=== PATIENT | male | born 1930 | race Caucasian/White ===

== ENCOUNTER 2016-08-27 10:00 | Inpatient (IN) | payer OTHER ==
--- NOTE | 2016-08-27 11:33 | EDPHY ---
H & P Stated Complaint: hx parkinsons/fell last night/inj r hip andr 4th digit Time Seen by Provider: 08/27/16 11:06 HPI/ROS: CHIEF COMPLAINT: fall, right hip pain, right wrist, right ring finger pain HISTORY OF PRESENT ILLNESS: 86-year-old male presents emergency department complaining of right hip pain, right wrist pain and right ring finger pain after he tripped and fell last night in the garage. Patient states his pinky finger was dislocated, he pulled on it and it went back into place, he was unable to reduce his ring finger that continues dislocated. Patient is right- hand-dominant. He denies head strike, no neck pain. Patient reports he has been able to limp around the house though has significant right hip pain with ambulation. No numbness or tingling to his hand, no numbness or tingling to his leg. Patient denies chest pain or shortness of breath. Patient with history of Parkinson disease. He has aortic stenosis and had a minimally invasive aortic valve replacement last year. He has a pacemaker. REVIEW OF SYSTEMS: A comprehensive 10 point review of systems is otherwise negative aside from elements mentioned in the history of present illness. Source: Patient, Family Exam Limitations: No limitations - Personal History Current Tetanus/Diphtheria Vaccine: Yes - Medical/Surgical History Hx Asthma: No Hx Chronic Respiratory Disease: No Hx Diabetes: No Hx Cardiac Disease: Yes Hx Renal Disease: No Hx Cirrhosis: No Hx Alcoholism: No Hx HIV/AIDS: No Hx Splenectomy or Spleen Trauma: No Other PMH: aortic stenosis, hypertension, pacemaker parkinsons - Social History Smoking Status: Former smoker - Physical Exam Exam: Physical Exam Gen: Alert and Oriented, NAD HEENT: PERRL, moist mucous membranes NECK: No C-spine tenderness to palpation CV: regular rate and systolic murmur PULM: CTAB, no wheezes ABDOMEN: soft, non tender to palpation, BS present BACK: No CVA tenderness NEURO: Neurologically grossly intact EXTREMITIES: Right hip with decreased range of motion due to pain, no obvious swelling or ecchymosis, 2+ pedal pulses, sensation intact to light touch, no shortening or rotation of foot. Right ring finger with obvious dislocation at PIP joint, tenderness to palpation, mild swelling and ecchymosis, cap refill less than 2 seconds, sensation intact to light touch, right pinky finger with tenderness to palpation at PIP joint with mild swelling and ecchymosis SKIN: no rash or break in skin on exposed skin PSYCH: answers questions appropriately. Constitutional: Initial Vital Signs Temperature (C) 36.6 C 08/27/16 10:10 Heart Rate 100 08/27/16 10:10 Respiratory Rate 18 08/27/16 10:10 Blood Pressure 132/73 H 08/27/16 10:10 O2 Sat (%) 89 L 08/27/16 10:10 O2 Delivery Mode Nasal Cannula O2 (L/minute) 4 Allergies/Adverse Reactions: diazepam [From Valium] Allergy (Severe, Verified 08/27/16 10:08) Other-Enter Comments midazolam HCl [From Versed] Allergy (Intermediate, Verified 08/27/16 10:08) Benzodiazepines Allergy (Verified 08/27/16 10:08) Home Medications: Medication Instructions Recorded Levothyroxine [Synthroid 50 mcg 50 mcg PO DAILY06 12/09/13 (*)] Acetaminophen [Tylenol ES 500 mg 1,000 mg PO DAILY 05/07/15 (*)] Gluc 2Kcl/Chondr/Karime Hy/Hy AC 1 cap PO DAILY 05/07/15 [Glucosamine & Chondroitin Cap] [place]-3 Fatty Acids/Fish Oil 1 cap PO DAILY 05/07/15 [[place] 3 1,000 mg Softgel] Omeprazole Magnesium [Prilosec Otc] 20 mg PO DAILY 05/07/15 Aspirin [Aspirin 81mg (*)] 81 mg PO DAILY #100 tab 05/19/15 Acetaminophen [Tylenol ES 500 mg 500 mg PO HS 08/27/16 (*)] Carbidopa/Levodopa 25/100Mg 1 tab PO QID 08/27/16 [Sinemet 25/100 MG (*)] Cholecalciferol Vit D3 [Vitamin D3 2,000 units PO DAILY 08/27/16 2000 units tab (OTC)] Lisinopril [Zestril 40 mg (*)] 40 mg PO DAILY 08/27/16 Oxymetazoline HCl [Afrin Nasal 1 spray EACHNARE DAILY PRN 08/27/16 [place] (OTC)] Polyethylene Glycol 3350 [Miralax 17 gm PO DAILY@18 08/27/16 17 gm (*)] Valacyclovir HCl [Valtrex] 1,000 mg PO DAILY 08/27/16 amLODIPine BESYLATE [Norvasc 5 mg 10 mg PO DAILY 08/27/16 (*)] Medical Decision Making - Diagnostics Imaging: Right hand x-ray independently reviewed by me Impression: 1. Dislocated ring finger PIP joint. 2. Anatomically aligned fifth finger PIP joint, although there is a tiny avulsion fracture fragment and associated soft tissue swelling. Dictated By: Perez Ramirez MD Right hip x-ray independently reviewed by me- Impression: Acute and slightly impacted proximal right femoral subcapital fracture. Dictated By: Perez Ramirez MD Right wrist x-ray independently reviewed by me- Impression: There is no acute osseous abnormality identified. If there is a high clinical concern regarding an occult fracture, conservative management and short -term repeat radiographic follow-up in 7-14 days could be considered. Dictated By: Perez Ramirez MD Procedures: Procedure: Dislocation reduction. Indication: Dislocation of the PIP joint right ring finger. Risks, benefits, alternatives discussed with the patient. Consent was obtained. The right ring finger was anesthetized with a digital block using 5 mL of 1% lidocaine without epinephrine mixed with 0.5% bupivacaine with about epinephrine. Manual traction and manipulation attempted to reduce finger without success. ED Course/Re-evaluation: 86-year-old male present after a trip and fall in his garage last night complaining of right hip pain and right hand pain. Patient has an obvious dislocation of his right ring finger at the PIP joint. X-ray shows a right subcapital femoral neck fracture. IV established CBC, chemistry panel, type and screen obtained, preop chest x-ray is also obtained. Patient reports no pain if he is not moving. No head strike, no loss of consciousness, acting appropriate, not on blood thinners. 1130-Dr. Whit mcallister as this is the patient's orthopedist he has used in the past. Her office is physician clinical assistant professor called back and she is not available. 1145-Dr. adria mcallister who is orthopedist on-call. 1235pm- Dr. covington return page, he is reviewing the x-rays and will call me back. 1300-Dr. Covington will take this patient to the OR for both his right hip and his right ring finger. Patient is admitted to Dr. Saunders. I have spoken with his physician clinical assistant professor Bryce Fraga who will come see the patient to clear him for surgery. - Data Points Laboratory Results: Laboratory Results 08/27/16 11:29 08/27/16 11:29 08/27/16 08/27/16 11:29 11:25 WBC 13.33 H 10^3/uL (3.80-9.50) RBC 3.89 L 10^6/uL (4.40-6.38) Hgb 13.5 L g/dL (13.7-17.5) Hct 40.2 % (40.0-51.0) MCV 103.3 H fL (81.5-99.8) MCH 34.7 H pg (27.9-34.1) MCHC 33.6 g/dL (32.4-36.7) RDW 18.5 H % (11.5-15.2) Plt Count 145 L 10^3/uL (150-400) MPV 10.9 fL (8.7-11.7) Neut % (Auto) 80.8 H % (39.3-74.2) Lymph % (Auto) 8.6 L % (15.0-45.0) [place] % (Auto) 8.0 % (4.5-13.0) Eos % (Auto) 1.4 % (0.6-7.6) Baso % (Auto) 0.5 % (0.3-1.7) Nucleat RBC Rel Count 0.0 % (0.0-0.2) Absolute Neuts (auto) 10.78 H 10^3/uL (1.70-6.50) Absolute Lymphs (auto) 1.14 10^3/uL (1.00-3.00) Absolute Monos (auto) 1.07 H 10^3/uL (0.30-0.80) Absolute Eos (auto) 0.19 10^3/uL (0.03-0.40) Absolute Basos (auto) 0.06 10^3/uL (0.02-0.10) Absolute Nucleated RBC 0.00 10^3/uL (0-0.01) Immature Gran % 0.7 % (0.0-1.1) Immature Gran # 0.09 10^3/uL (0.00-0.10) Sodium 142 mEq/L (134-144) Potassium 4.5 mEq/L (3.5-5.2) Chloride 106 mEq/L (97-110) Carbon Dioxide 27 mEq/l (22-31) Anion Gap 9 mEq/L (8-16) BUN 20 mg/dL (7-23) Creatinine 0.9 mg/dL (0.7-1.3) Estimated GFR > 60 Glucose 123 H mg/dL (70-100) Calcium 9.1 mg/dL (8.5-10.4) Patient ABO/Rh A POSITIVE Antibody Screen NEGATIVE Departure - Departure Disposition: [facility] Inpatient Acute Clinical Impression: Closed right hip fracture Qualifiers: Encounter type: initial encounter Qualifier Code: (S72.001A) Fracture of unspecified part of neck of right femur, initial encounter for closed fracture Dislocation of right ring finger Qualifiers: Encounter type: initial encounter Qualifier Code: (S63.254A) Unspecified dislocation of right ring finger, initial encounter Condition: Fair
[2016-08-27 11:41] LABS: % IMMATURE GRANULYOCYTES 0.7 % (0.0-1.1); ABSOLUTE IMMATURE GRANULOCYTES 0.09 10^3/uL (0.00-0.10); ADD DIFF? NO; ADD MORPH? NO; ADD SCAN? NO; ATYPICAL LYMPHOCYTE FLAG 0 (0-99); FRAGMENT RBC FLAG 20 (0-99); HEMATOCRIT 40.2 % (40.0-51.0); HEMOGLOBIN 13.5 g/dL (13.7-17.5); LEFT SHIFT FLG 0 (0-99); LIPEMIA HEMOLYSIS FLAG 80 (0-99); MEAN CELL HEMOGLOBIN 34.7 pg (27.9-34.1); MEAN CELL HEMOGLOBIN CONCENTR. 33.6 g/dL (32.4-36.7); MEAN CELL VOLUME 103.3 fL (81.5-99.8); MEAN PLATELET VOLUME 10.9 fL (8.7-11.7); PLATELET CLUMPS FLAG 0 (0-99); PLATELET COUNT 145 10^3/uL (150-400); RED BLOOD CELL COUNT 3.89 10^6/uL (4.40-6.38); RED CELL DISTRIBUTION WIDTH 18.5 % (11.5-15.2)
--- NOTE | 2016-08-27 11:46 | DX ---
Right Ring Finger, Three Views August 27, 2016 at 10:57 a.m. Clinical History: 86-year-old male who fell last night and presents to the emergency department with fourth and fifth digit discomfort, and a visible ring finger deformity. The patient indicates that hi s fifth digit was autoreduced last evening. Comparison Study: None. Findings: There is dorsal-ulnar dislocation of the ring finger middle phalanx relative to the proxima l phalanx. The fifth finger PIP joint is anatomically aligned, although there is a tiny linear avulsi on fracture fragment along the distal medial portion of the proximal phalanx. There is soft tissue sw elling. The bones are demineralized with some mild degenerative features. Impression: 1. Dislocated ring finger PIP joint. 2. Anatomically aligned fifth finger PIP joint, although there is a tiny avulsion fracture fragment a nd associated soft tissue swelling.
--- NOTE | 2016-08-27 11:51 | DX ---
AP Supine Pelvis and Frog Lateral View of the Right Hip, Two Views Total August 27, 2016 at 10:55 a.m. Clinical History: 86-year-old male with persistent right hip pain after a fall last evening. Comparison Study: CT scan of the pelvis, dated April 06, 2015. Findings: There is an acute subcapital fracture with slight impaction involving the proximal right fe mur. The femoral head still remains seated within the acetabulum. The left hip is anatomically aligne d. The ischial pubic rami are intact. There is no symphysis pubis or SI joint diastasis. There is sedrick e degenerative change in the lower lumbar spine. Impression: Acute and slightly impacted proximal right femoral subcapital fracture.
--- NOTE | 2016-08-27 11:53 | DX ---
Right Wrist, Four Views August 27, 2016 at 11:01 a.m. Clinical History: 86-year-old male with persistent pain after a fall last night. The patient's discom fort is between the web space of the thumb and just proximal to the head of the radius and ulna. Comparison Study: None. Findings: The bones are mildly demineralized; however, there is no acute fracture or dislocation. The radiocarpal and intercarpal alignments are maintained. The distal radius, ulna, and the navicular ar e intact, and the base of the thumb metacarpal is normal. Impression: There is no acute osseous abnormality identified. If there is a high clinical concern regarding an occult fracture, conservative management and short-t erm repeat radiographic follow-up in 7-14 days could be considered.
[2016-08-27 12:16] LABS: ANION GAP 9 mEq/L (8-16); CALCIUM 9.1 mg/dL (8.5-10.4); CARBON DIOXIDE 27 mEq/l (22-31); CHLORIDE 106 mEq/L (97-110); CREATININE 0.9 mg/dL (0.7-1.3); GLOMERULAR FILTRATION RATE > 60; GLUCOSE 123 mg/dL (70-100); POTASSIUM 4.5 mEq/L (3.5-5.2); SODIUM 142 mEq/L (134-144)
--- NOTE | 2016-08-27 12:50 | DX ---
Right Fourth Finger, Three Views August 27, 2016 at 11:37 a.m. Clinical History: 86-year-old male with reduction attempt of the fourth digit. Comparison Study: Right fourth digit at 10:57 a.m. today. Findings: There has been no change in the dorsal-ulnar subluxation of the ring finger PIP joint with associated soft tissue swelling. Again noted is a punctate avulsion fracture along the medial margin of the fifth digit PIP joint with soft tissue swelling. Impression: No significant interval change since 10:57 a.m.
--- NOTE | 2016-08-27 13:10 | DX ---
Chest, Portable AP Upright August 27, 2016 at 11:42 a.m. Clinical History: 86-year-old male presenting preoperatively after a fall, sustaining a right femoral subcapital fracture. Comparison Study: Chest, dated August 13, 2015. Findings: Again noted is a dual-lead left subclavian transvenous pacemaker with the proximal lead in the right atrium and the distal lead in the right ventricle. Oxygen tubing is present. There is mild chronic elevation of the right hemidiaphragm and some mild chronic interstitial change at the left papito ng base. The cardiac size is at the upper limits of normal. There is some mural calcification of the aortic knob and mild tortuosity of the descending thoracic aorta. There is no peripheral interstitial edema or pneumothorax. The patient is slightly rotative to the left. There is no rib fracture observ ed. Impression: Radiographically similar to August 13, 2015.
[2016-08-27] MEDS ORDERED: MAGNESIUM HYDROXIDE 30 ML UDCUP PO PRN (14:03)
[2016-08-27] MEDS ORDERED: POLYETHYLENE GLYCOL 3350 17 GM PKT PO PRN (14:03)
[2016-08-27] MEDS ORDERED: ONDANSETRON DISINTEGRATING 4 MG TAB PO PRN (14:03)
[2016-08-27] MEDS ORDERED: ONDANSETRON 4 MG/2 ML VIAL IVP PRN (14:03)
[2016-08-27] MEDS ORDERED: IBUPROFEN 200 MG TAB PO PRN (14:03)
[2016-08-27] MEDS ORDERED: LACTULOSE 20 GM/30 ML UDCUP PO PRN (14:03)
[2016-08-27] MEDS ORDERED: ACETAMINOPHEN 325 MG TAB PO PRN (14:03)
[2016-08-27] MEDS ORDERED: BISACODYL 10 MG SUPP PR PRN (14:03)
--- NOTE | 2016-08-27 14:13 | SOAPPROG ---
[facility] Progress Note Assessment/Plan: Assessment: Plan: 08/27/16 14:13 right hip fx--repair planned for today. Patient is NPO, takes only ASA 81 mg daily for anticoag. Add VTE prevention meds after surgery. Allergy--urinary retention from benzos. Proceed with surgery right ring finger sublux--repair OR prior aortic valve replacement 04/2015 doing well. Does cardiac rehab 3x/week without difficulty. murmur--prior valve replacement check ECHO in am Subjective: Mechanical fall in garage last night. He was able to get up by himself and slept on couch last night. Came to ER this am given dislocated right ring finger and hip pain. No LOC. comfortable currently. He does cardiac rehab stationary bike work 3 days per week without difficulty. Objective: Vital Signs Temp Pulse Resp BP Pulse Ox 36.6 C 94 16 132/73 H 96 08/27/16 10:10 08/27/16 12:00 08/27/16 12:00 08/27/16 10:10 08/27/16 12:00 Gen: NAD bright, MATCH-E-BE-NASH-SHE-WISH BAND HEENT: no trauma Neck no masses, nl ROM for age Lungs: CTAB Heart: RRR 2-3/6 ANDREAS, old scars from minimally invasive aortic valve repair Abd + bs soft, nt,nd Skin W/D/I Right hand, swelling and some early ecchymosis, abnormal ring finger positioning Right hip--mild lateral to anterior swelling, internal/external rotation of right foot increases discomfort LE's with 2/4 dp pulses, slight edema EKG pending (has pacer) ICD10 Worksheet Patient Problems: Problems Problem Status Diagnosed Postoperative complete heart block Acute S/P aortic valve replacement with bioprosthetic valve Acute S/P placement of cardiac pacemaker Acute BPH (benign prostatic hyperplasia) Chronic COPD (chronic obstructive pulmonary disease) Chronic GERD (gastroesophageal reflux disease) Chronic Hypertension Chronic Hypothyroid Chronic Nocturnal hypoxia Chronic Physical deconditioning Chronic Severe calcific aortic valve stenosis Chronic
[2016-08-27] MEDS ORDERED: D5W 1/2 NS W/ 20 KCl/L 1,000 ML IV SCH (14:15)
--- NOTE | 2016-08-27 15:23 | GHP ---
[f rep st] HISTORY AND PHYSICAL DATE OF ADMISSION: 08/27/2016 REASON FOR ADMISSION: Right hip fracture after fall in garage. HISTORY OF PRESENT ILLNESS: The patient is an 86-year-old male who had a mechanical fall in his gara ge last night at 9 p.m. He went into his garage to see what kind of light was shining in. He was ab le to identify it was his neighbor's light coming in through a garage window. He did not have his li ghts on in his garage. Unfortunately, he tripped over a box and fell. He did incur sudden pain in h is right hip as well as right hand pain. He was able to get up nearly immediately and made his way i nto the house. He has a 2-level house and was unable to get up to the stairs to his bedroom. For th is reason, he slept on the couch last night. Given increasing pain in his right hip and right hand p ain with obvious distraction of appropriate persistence of his right ring finger, he came to the ER a t approximately 9 a.m. this morning. He states he felt fairly weak and shaky due to pain and somewha t of a rough nigh when he got to the ER. The last time he had anything to eat or drink was liquids a t 9 a.m. this morning. He states he is hungry and thirsty, but understands with surgery pending, he will not eat or drink at this point. PAST MEDICAL HISTORY: Significant for minimally invasive aortic valve surgery April 2015. He has been in cardiac rehab 3 times where he has done quite well. He is active with this 3 times per week without difficulties. Hypertension, hypothyroid, mild COPD, reflux esophagitis, benign epididymal ma ss, history prostatitis, shoulder pain, possible Parkinson's, multinodular goiter. ALLERGIES: Urinary retention as a side effect to benzodiazepines. CURRENT MEDICATIONS: Will be reviewed by pharmacist and updated per chart. Office list includes ome ga-3 fish oil, Prilosec daily, vitamin D 1000 international units daily, levothyroxine 50 mcg daily, amlodipine 5 mg 2 tablets daily, lisinopril 40 mg daily, Voltaren gel p.r.n., Tylenol p.r.n., glucosa mine chondroitin, MiraLAX, Colace, carbidopa, levodopa t.i.d., aspirin 81 mg daily. PAST SURGICAL HISTORY: Minimally invasive aortic valve [facility] April 2015[facility] SOCIAL HISTORY: . Nonsmoker currently. Lives in [place] long-term. Consumes 3-4 beverages per week containing alcohol. Quit smoking more than 30 years ago. FAMILY HISTORY: Father from CHF complications at age 79. Mother at age 80. IMMUNIZATIONS: Including Pneumovax, Prevnar. Tetanus and flu are up to date. REVIEW OF SYSTEMS: He denies fever or chills. He states he mildly hit his head, but does not have a ny pain or visual change. Stable hearing loss. No nasal or throat symptoms. No neck pain after the fall. He denies unusual shortness of breath or cough. Baseline cough is stable. He denies chest p ain or palpitations. No change in overall exercise performance. He is active 3 times per week. Lou etite has been normal. No stomach pain. No nausea or vomiting. No change in bowel habits. No acut e urinary symptoms. He reports urinary retention from benzodiazepines and would like to avoid this a s a complication of surgery. Skin, denies any rash. Right hand pain as per HPI. Right hip pain wit h weightbearing and lateral pain to lateral anterior pain currently. This is worsened by movement of his right leg. He has not had recent edema. PHYSICAL EXAMINATION: VITAL SIGNS: Blood pressure 132/73, heart rate 100, respiratory rate 18, satu rations 89% on room air, 96% on 4 L. Temperature 36.3. GENERAL: Pleasant male. Hard of hearing. A lert, comfortable, resting in bed. HEENT: Eyes are symmetric. Mildly dry oral mucosa. NECK: With out masses. Range of motion is appropriate for age. No jugular venous pressure elevation. LUNGS: Mildly diminished breath sounds, otherwise clear. HEART: Mildly tachycardic. Regular rhythm with 2 -3/6 systolic murmur. CHEST: Well-healed incisions from prior aortic valve replacement are noted. ABDOMEN: Positive bowel sounds. Soft, nontender, nondistended. No guarding or rebound or masses. SKIN: Warm, dry and intact, except for some ecchymosis and abrasions involving his right hand with d istraction of middle phalanx of his ring finger, some secondary ecchymoses and swelling. EXTREMITIES : Right hip pain is increased with internal and external rotation of right lower extremity. There i s some mild anterolateral swelling in the right hip region currently. Weightbearing status is not te sted. X-rays confirm a fracture on the femoral neck entering to the femoral ball. ASSESSMENT: 1. Right hip fracture needing repair. He is cleared for surgery. He does have a history of aortic valve replacement about 1 year ago. He has done quite well with cardiac rehab. He does not have any unusual exertional symptomatology or limitations. His only anticoagulation has been aspirin 81 mg d aily. We will hold this until after surgery. Anticipate adding pharmacologic anticoagulants after s urgery to prevent venous thromboembolism. 2. Right hand subluxation, anticipate repair in the ER. 3. Murmur. We will check echocardiogram in the morning. I suspect this correlates with prior aorti c valve surgery. 4. Hypothyroid. Continue replacement. 5. Hypertension. Follow blood pressure through his hospital course. He may need some adjustments g iven potential for blood loss and some dehydration over the past 24 hours. Case was discussed with Dr. Harsh Saunders. /[id number]/MODL
--- NOTE | 2016-08-27 15:39 | CPEKG ---
Heart Rate: 89 RR Interval: 674 P-R Interval: 188 QRSD Interval: 170 QT Interval: 408 QTC Interval: 497 P Hubbard: 60 QRS Hubbard: -87 T Wave Hubbard: 88 EKG Severity - ABNORMAL ECG - EKG Impression: ATRIAL-SENSED VENTRICULAR-PACED COMPLEXES EKG Impression: NONSPECIFIC IVCD WITH LAD EKG Impression: LEFT VENTRICULAR HYPERTROPHY Electronically Signed By: Angela Fernandez 27-Aug-2016 16:49:26
[2016-08-27] MEDS ORDERED: CEFAZOLIN 2 GM/DEXTROSE/100 ML BAG IV ONE (16:27)
[2016-08-27] MEDS ORDERED: PROPOFOL/EMULSION 500 MG/50 ML BOTTLE IV ONE (16:32)
[2016-08-27] MEDS ORDERED: DEXAMETHASONE 4 MG/ML VIAL ONE (16:32)
[2016-08-27] MEDS ORDERED: fentaNYL 100 MCG/2 ML INJ ONE ×2 (16:32→20:12)
[2016-08-27] MEDS ORDERED: LIDOCAINE 2% 100 MG/5 ML SYR IVP ONE (16:33)
[2016-08-27] MEDS ORDERED: ONDANSETRON 4 MG/2 ML VIAL ONE (16:33)
[2016-08-27] MEDS ORDERED: LIDOCAINE 2% JELLY 5 ML TUBE ONE (16:33)
[2016-08-27] MEDS ORDERED: BUPIVACAINE 0.5% 30 ML SDV ONE (17:07)
[2016-08-27] MEDS ORDERED: LIDOCAINE 0.5% 50 ML SDV ONE (17:09)
[2016-08-27] MEDS ORDERED: BUPIVACAINE 0.25% 30 ML SDV ONE (17:09)
[2016-08-27] MEDS ORDERED: LIDOCAINE 1% 30 ML SDV ONE (17:11)
[2016-08-27] MEDS ORDERED: PROPOFOL 200 MG/20 ML VIAL ONE (18:19)
--- NOTE | 2016-08-27 20:14 | DX ---
Fluoroscopy With Right Hip Images August 27, 2016at 1818 Hours History: Right hip fracture. Fluoroscopy Time: 119 seconds utilized intraoperatively by Dr. Mclaughlin. Dose 31.2 mGy. Technique: Two right hip intraoperative images have just been presented for interpretation. Findings: Right hip demonstrates three pins through a femoral neck fracture. Impression: Right hip pinning for femoral neck fracture.
--- NOTE | 2016-08-27 20:33 | DX ---
Right Knee, Two Views History: Trauma, pain, fall. Findings: Limited AP and lateral views of the right knee demonstrate no evidence of joint effusion. N o definite fracture. No significant joint space narrowing. Impression: 1. No definite fracture of the right knee. 2. Consider additional imaging, if clinically indicated.
--- NOTE | 2016-08-27 20:36 | DX ---
Right hand 3 views August 27, 2016 at 1950 Hours History: Fourth finger fracture dislocation post cast placement. Findings: Limited due to overlying cast placement. There is no evidence of residual dislocation of th e fourth proximal interphalangeal joint. Impression: Normal alignment of the fourth finger.
--- NOTE | 2016-08-27 20:37 | DX ---
Right Hip, Two Views August 27, 2016 at 1940 Hours History: Femoral neck fracture post pinning. Comparison: Same day, earlier. Findings: Three pins through the right femoral neck fracture demonstrating satisfactory alignment. Impression: Status post three pins placed through right femoral neck fracture with satisfactory align ment.
[2016-08-27] MEDS: SENNOSIDES/DOCUSATE SODIUM TAB PO SCH (21:49)
--- NOTE | 2016-08-27 22:11 | PDGENHP ---
History and Physical - Chief Complaint Right Hip pain - History of Present Illness 86y M p/w Right hip jose juan after fall in garage directly onto Right hip on 2016. Pt brought in by today after c/o pain. Pt also dislocated Right ring and small fingers at same time. Pt was able to relocate pinky but Right ring finger remains disfigured, painful and immobile Walks with cane at baseline. History Information - Allergies/Home Medication List Allergies/Adverse Reactions: diazepam [From Valium] Allergy (Severe, Verified 08/27/16 10:08) Other-Enter Comments midazolam HCl [From Versed] Allergy (Intermediate, Verified 08/27/16 10:08) Benzodiazepines Allergy (Verified 08/27/16 10:08) Home Medications: Levothyroxine [Synthroid 50 mcg (*)] 50 mcg PO DAILY06 12/09/13 [Last Taken 12/06 08:00] Acetaminophen [Tylenol ES 500 mg (*)] 1,000 mg PO DAILY 05/07/15 [Last Taken 12/06 08:00] Gluc 2Kcl/Chondr/Karime Hy/Hy AC [Glucosamine & Chondroitin Cap] 1 cap PO DAILY [Last Taken 08/27/16 08:00] [place]-3 Fatty Acids/Fish Oil [[place] 3 1,000 mg Softgel] 1 cap PO DAILY 05/07/15 [Last Taken 08/27/16 08:00] Omeprazole Magnesium [Prilosec Otc] 20 mg PO DAILY 05/07/15 [Last Taken 08:00] Acetaminophen [Tylenol ES 500 mg (*)] 500 mg PO HS 08/27/16 [Last Taken 20:00] Carbidopa/Levodopa 25/100Mg [Sinemet 25/100 MG (*)] 1 tab PO QID 08/27/16 [Last Taken 08/27/16 08:00] Cholecalciferol Vit D3 [Vitamin D3 2000 units tab (OTC)] 2,000 units PO DAILY [Last Taken 08/27/16 08:00] Lisinopril [Zestril 40 mg (*)] 40 mg PO DAILY 08/27/16 [Last Taken 08/27/16 08: 00] Oxymetazoline HCl [Afrin Nasal [place] (OTC)] 1 spray EACHNARE DAILY PRN 08/27/16 [Last Taken 08/26/16] Polyethylene Glycol 3350 [Miralax 17 gm (*)] 17 gm PO DAILY@18 08/27/16 [Last Taken 08/26/16 18:00] Valacyclovir HCl [Valtrex] 1,000 mg PO DAILY 08/27/16 [Last Taken 08/27/16 08:00 ] amLODIPine BESYLATE [Norvasc 5 mg (*)] 10 mg PO DAILY 08/27/16 [Last Taken 08/27 08:00] I have personally reviewed and updated: family history, social history, surgical history Past Medical History: PMHx: Aortic stenosis s/p AVR, HTN, Pacemaker, Parkinsons - Social History Smoking Status: Former smoker Physical Exam Physical Exam: PE: Laying in bed. AxOx3 in preop area RRR, unlabored breathing. RLE: TTP R hip. SILT S/S/SP/DP/T. 2+ DP/PT 4/5 EHL/FHL/TA/GS RUE: R ring finger with angulation deformity. No break in skin. Brisk cap refill at all finger tips. Pt unable to range PIP. States sensation at ring tip is equal to other fingers on medial, lateral, and dorsal aspects. Temp Pulse Resp BP Pulse Ox 36.9 C 125 H 19 145/75 H 88 L 08/27/16 21:13 08/27/16 21:13 08/27/16 21:13 08/27/16 21:13 08/27/16 21:13 O2 (L/minute) 3 Constitutional: appears nourished Eyes: PERRL Ears, Nose, Mouth, Throat: hard of hearing Cardiovascular: regular rate and rhythym Peripheral Pulses: 2+: dorsalis-pedis (R) Respiratory: no respiratory distress Skin: warm Musculoskeletal: joint tenderness Neurologic: AAOx3 Psychiatric: interacting appropriately Lab Data & Imaging Review 08/27/16 11:29 08/27/16 11:29 WBC 13.33 10^3/uL (3.80-9.50) H 08/27/16 11:29 RBC 3.89 10^6/uL (4.40-6.38) L 08/27/16 11:29 Hgb 13.5 g/dL (13.7-17.5) L 08/27/16 11:29 Hct 40.2 % (40.0-51.0) 08/27/16 11:29 MCV 103.3 fL (81.5-99.8) H 08/27/16 11:29 MCH 34.7 pg (27.9-34.1) H 08/27/16 11:29 MCHC 33.6 g/dL (32.4-36.7) 08/27/16 11:29 RDW 18.5 % (11.5-15.2) H 08/27/16 11:29 Plt Count 145 10^3/uL (150-400) L 08/27/16 11:29 MPV 10.9 fL (8.7-11.7) 08/27/16 11:29 Neut % (Auto) 80.8 % (39.3-74.2) H 08/27/16 11:29 Lymph % (Auto) 8.6 % (15.0-45.0) L 08/27/16 11:29 [place] % (Auto) 8.0 % (4.5-13.0) 08/27/16 11:29 Eos % (Auto) 1.4 % (0.6-7.6) 08/27/16 11:29 Baso % (Auto) 0.5 % (0.3-1.7) 08/27/16 11:29 Nucleat RBC Rel Count 0.0 % (0.0-0.2) 08/27/16 11:29 Absolute Neuts (auto) 10.78 10^3/uL (1.70-6.50) H 08/27/16 11:29 Absolute Lymphs (auto) 1.14 10^3/uL (1.00-3.00) 08/27/16 11:29 Absolute Monos (auto) 1.07 10^3/uL (0.30-0.80) H 08/27/16 11:29 Absolute Eos (auto) 0.19 10^3/uL (0.03-0.40) 08/27/16 11:29 Absolute Basos (auto) 0.06 10^3/uL (0.02-0.10) 08/27/16 11:29 Absolute Nucleated RBC 0.00 10^3/uL (0-0.01) 08/27/16 11:29 Immature Gran % 0.7 % (0.0-1.1) 08/27/16 11:29 Immature Gran # 0.09 10^3/uL (0.00-0.10) 08/27/16 11:29 Sodium 142 mEq/L (134-144) 08/27/16 11:29 Potassium 4.5 mEq/L (3.5-5.2) 08/27/16 11:29 Chloride 106 mEq/L (97-110) 08/27/16 11:29 Carbon Dioxide 27 mEq/l (22-31) 08/27/16 11:29 Anion Gap 9 mEq/L (8-16) 08/27/16 11:29 BUN 20 mg/dL (7-23) 08/27/16 11:29 Creatinine 0.9 mg/dL (0.7-1.3) 08/27/16 11:29 Estimated GFR > 60 08/27/16 11:29 Glucose 123 mg/dL (70-100) H 08/27/16 11:29 Calcium 9.1 mg/dL (8.5-10.4) 08/27/16 11:29 Patient ABO/Rh A POSITIVE 08/27/16 11:25 Antibody Screen NEGATIVE 08/27/16 11:25 Visualized and Interpreted Chest x-ray results: No Visualized and Interpreted imaging results: Yes Interpretation: IMAGING: Xray R pelvis demonstrates Valgus impacted femoral neck fracture. Visualized and Interpreted EKG results: No Assessment & Plan Assessment: PE: Laying in bed. AxOx3 in preop area RRR, unlabored breathing. RLE: TTP R hip. SILT S/S/SP/DP/T. 2+ DP/PT 4/5 EHL/FHL/TA/GS RUE: R ring finger with angulation deformity. No break in skin. Brisk cap refill at all finger tips. Pt unable to range PIP. States sensation at ring tip is equal to other fingers on medial, lateral, and dorsal aspects. IMAGING: Xray R pelvis demonstrates Valgus impacted femoral neck fracture. Impression: 86y M w Parkinsons, AVR, pacemaker p/w Right valgus impacted femoral neck fracture Plan: After discussing risk, benefits of operative versus nonoperative fixation for the Right hip, the family ( Irasema) and the patient wish to elect for operative management with pinning of the femoral neck fracture. We discussed specific risks such as nonunion, hip necrosis, infection, need for additional surgery, painful hardware, etc. We went through the consent and the patient will be taken to the OR today for: Open pinning of the Right hip, possible open vs. closed reduction of dislocated Right ring finger PIP joint -Arvind Mclaughlin Plan: Impression: 86y M w Parkinsons, AVR, pacemaker p/w Right valgus impacted femoral neck fracture Plan: After discussing risk, benefits of operative versus nonoperative fixation for the Right hip, the family ( Irasema) and the patient wish to elect for operative management with pinning of the femoral neck fracture. We discussed specific risks such as nonunion, hip necrosis, infection, need for additional surgery, painful hardware, etc. We went through the consent and the patient will be taken to the OR today for: Open pinning of the Right hip, possible open vs. closed reduction of dislocated Right ring finger PIP joint -Arvind Mclaughlin
[2016-08-28] MEDS: oxyCODONE IR 5 MG TAB PO PRN (00:14)
[2016-08-28] MEDS: ceFAZolin 2 GM in D5W 100 ML IV SCH ×2 (00:15→08:37)
[2016-08-28 05:15] LABS: % IMMATURE GRANULYOCYTES 0.8 % (0.0-1.1); ABSOLUTE IMMATURE GRANULOCYTES 0.17 10^3/uL (0.00-0.10); ADD DIFF? NO; ADD MORPH? NO; ADD SCAN? NO; ATYPICAL LYMPHOCYTE FLAG 0 (0-99); FRAGMENT RBC FLAG 20 (0-99); HEMATOCRIT 32.9 % (40.0-51.0); HEMOGLOBIN 11.2 g/dL (13.7-17.5); LEFT SHIFT FLG 0 (0-99); LIPEMIA HEMOLYSIS FLAG 90 (0-99); MEAN CELL HEMOGLOBIN 35.2 pg (27.9-34.1); MEAN CELL VOLUME 103.5 fL (81.5-99.8); MEAN PLATELET VOLUME 11.4 fL (8.7-11.7); PLATELET CLUMPS FLAG 10 (0-99); PLATELET COUNT 128 10^3/uL (150-400); RED BLOOD CELL COUNT 3.18 10^6/uL (4.40-6.38); RED CELL DISTRIBUTION WIDTH 17.8 % (11.5-15.2)
[2016-08-28 05:41] LABS: ANION GAP 7 mEq/L (8-16); CALCIUM 8.4 mg/dL (8.5-10.4); CARBON DIOXIDE 26 mEq/l (22-31); CHLORIDE 104 mEq/L (97-110); CREATININE 0.9 mg/dL (0.7-1.3); GLOMERULAR FILTRATION RATE > 60; GLUCOSE 182 mg/dL (70-100); POTASSIUM 4.5 mEq/L (3.5-5.2); SODIUM 137 mEq/L (134-144)
[2016-08-28] MEDS ORDERED: OXYMETAZOLINE 30 ML NASAL SPRAY EACHNARE PRN (08:27)
[2016-08-28] MEDS: SENNOSIDES/DOCUSATE SODIUM TAB PO SCH ×2 (08:30→20:27)
--- NOTE | 2016-08-28 08:44 | SOAPPROG ---
KALLI Progress Note Assessment/Plan: Assessment: Plan: 08/27/16 14:13 right hip fx--repair planned for today. Patient is NPO, takes only ASA 81 mg daily for anticoag. Add VTE prevention meds after surgery. Allergy--urinary retention from benzos. Proceed with surgery right ring finger sublux--repair OR prior aortic valve replacement 04/2015 doing well. Does cardiac rehab 3x/week without difficulty. murmur--prior valve replacement check ECHO in am 08/28/16 08:42 s/p right hip repair--will start the PT/OT process, will be difficult with Rt hand injuries, perhaps a platform walker murmur prior aortic valve replacement--check echo WBC elevation, suspect reactive--follow post op VTE prevention lovenox HTN--stable resume lisinopril and amlodipine at half baseline doses Subjective: Feels hungry and thirsty. Not really bothered by pain. Objective: Vital Signs Temp Pulse Resp BP Pulse Ox 36.5 C 108 H 22 H 124/66 H 92 08/28/16 07:30 08/28/16 07:30 08/28/16 07:30 08/28/16 07:30 08/28/16 07:30 Laboratory Results 08/28/16 04:49 08/28/16 04:49 08/27/16 08/28/16 08/29/16 05:59 05:59 05:59 Intake Total 250 Output Total 350 250 Balance -100 -250 Gen: bright, NAD Lungs: mildly diminished, dry cough Heart: tachy regular, 2-3/6 murmur Abd +bs soft NT RUE hand in splint Right hip--dressed XRAYS with 3 long screws WBC elevated no temp clinically looks well ICD10 Worksheet Patient Problems: Problems Problem Status Diagnosed Closed right hip fracture Acute Dislocation of right ring finger Acute Postoperative complete heart block Acute S/P aortic valve replacement with bioprosthetic valve Acute S/P placement of cardiac pacemaker Acute BPH (benign prostatic hyperplasia) Chronic COPD (chronic obstructive pulmonary disease) Chronic GERD (gastroesophageal reflux disease) Chronic Hypertension Chronic Hypothyroid Chronic Nocturnal hypoxia Chronic Physical deconditioning Chronic Severe calcific aortic valve stenosis Chronic
[2016-08-28] MEDS ORDERED: OMEGA PO SCH (09:00)
[2016-08-28] MEDS ORDERED: FATTY ACIDS PO SCH (09:00)
[2016-08-28] MEDS ORDERED: NON-FORMULARY NEW DRUG (Omeprazole Magnesium [Prilosec Otc] 20 MG) PO SCH (09:00)
[2016-08-28] MEDS ORDERED: [UNRECOGNIZED DRUG - MIXTURE] PO SCH (09:00)
[2016-08-28] MEDS ORDERED: FISH OIL PO SCH (09:00)
[2016-08-28] MEDS ORDERED: amLODIPine BESYLATE 5 MG TAB PO SCH (09:00)
[2016-08-28] MEDS ORDERED: LISINOPRIL 40 MG TAB PO SCH (09:00)
[2016-08-28] MEDS: OMEGA-3 FATTY ACIDS 1,000 MG CAP PO SCH (09:58)
[2016-08-28] MEDS: ENOXAPARIN 40 MG/0.4 ML SYR SC SCH (09:58)
[2016-08-28] MEDS: amLODIPine BESYLATE 5 MG TAB PO SCH (09:59)
[2016-08-28] MEDS: GLUCOSAMINE/CHONDROITIN CAP PO SCH (09:59)
[2016-08-28] MEDS: valACYclovir 500 MG TAB PO SCH (10:02)
[2016-08-28] MEDS: PANTOPRAZOLE SODIUM 40 MG TAB PO SCH (10:03)
[2016-08-28] MEDS: ASPIRIN 81 MG CHEWABLE TAB PO SCH (10:03)
[2016-08-28] MEDS: CHOLECALCIFEROL VIT D3 2,000 UNITS TAB/CAP PO SCH (10:03)
[2016-08-28] MEDS: LISINOPRIL 20 MG TAB PO SCH (10:03)
[2016-08-28] MEDS: LEVOTHYROXINE 50 MCG TAB PO SCH (10:06)
[2016-08-28] MEDS: ACETAMINOPHEN 500 MG TAB PO SCH ×2 (10:06→20:26)
[2016-08-28] MEDS: CARBIDOPA/LEVODOPA 25 MG/100 MG TAB PO SCH ×3 (12:19→20:27)
--- NOTE | 2016-08-28 15:40 | ECHO ---
[id number] + + [address] : : [place] [address] : : [phone] + Adult Echocardiographic Report + -------+ :Name: Dania DE LA CRUZ Date: 08/28/2016 09:26 AM : : Hospital Admission Number: [id number] Locati on: 358: :: 1930 Gender: Male Height: 69 in : :Age: 86 yrs Race: WH Weight: 175 lb : :Reason For Study: Eval LV Fx : : BSA: 2.0 meter s2 : :History: Murmur, Post Hand Surgery, Known AVR #21 CE Magna : + -------+ MMode/2D Measurements & Calculations IVSd: 0.91 cm LVIDd: 5.1 cm FS: 33.9 % Ao root diam: 3.1 cm LVPWd: 1.1 cm LVIDs: 3.4 cm EDV(Teich): 126.1 ml ACS: 1.6 cm ESV(Teich): 47.4 ml EF(Teich): 62.4 % LVOT diam: 2.1 cm LVOT area: 3.6 cm2 Normal Measurement Values: + + :LVIDd (3.5-5.7cm) IVSd (0.6-1.1cm) LVPWd (0.6-1.1cm) Aortic Root (2.0-3.7cm)Left Atrium (1.5-4.0cm): :LV Vol(d) (76-115ml) LV Vol(s) (29-48ml) Ejec Fraction (50-65%)PV Santy (0.6- 1.2m/s) TV Santy (0.4-1.0m/s) : :MV E Santy (0.8-1.0m/s)MV A Santy (0.3-1.0m/s)LVOT Santy (0.7-1.2m/s) Asc Ao Santy ( 0.9-1.8m/s) : + + Doppler Measurements & Calculations MV E max santy: Ao V2 max: LV V1 max: SV(LVOT): 61.7 cm/sec 350.2 cm/sec 81.9 cm/sec 62.0 ml MV A max santy: Ao max P.1 mmHgLV V1 max P.0 cm/sec Ao mean P.7 mmHg MV E/A: 0.53 36.0 mmHg LV V1 mean PG: Ao V2 mean: 1.4 mmHg 277.1 cm/sec LV V1 mean: Ao V2 VTI: 77.1 cm 54.9 cm/sec LV V1 VTI: 17.4 cm JOSEPHINE(I,D): 0.80 cm2 JOSEPHINE(V,D): 0.83 cm2 PA V2 max: TR max santy: 112.7 cm/sec 306.8 cm/sec PA max P.1 mmHg TR max P.6 mmHg RAP systole: 5.0 mmHg RVSP(TR): 42.6 mmHg Left Ventricle The left ventricle is normal in size. There is normal left ventricular wall thickness. Ejection Fraction = 55-60%. There is distal anterior septal dyskinesis from pacemaker activity. There is LV dysschrony. Right Ventricle There is a pacemaker lead in the right ventricle. The right ventricle is normal size. Atria The left atrium is mildly dilated. Right atrial size is normal. Mitral Valve The mitral valve leaflets appear thickened, but open well. There is mild mitral annular calcification. There is no evidence of mitral valve prolapse. There is no mitral valve stenosis. There is trace mitral regurgitation. Tricuspid Valve The tricuspid valve is normal in structure and function. There is mild tricuspid regurgitation. Right ventricular systolic pressure is 43mmHg. Aortic Valve S/P #21 AVR Magna Bovine valve. There is turbulent flow noted thru the prosthetic valve with a mean gradient of 36 mmHg. This is higher than the previous exam of 05/25/2015 when there was a aortic valve mean of 22mmHg. Moderate valvular aortic stenosis. The Ao V2 max is 3.5 m/sec with a Ao mean PG of 36 mmHg. There is an eccentric jet of aortic insufficiency directed against the anterior mitral leaflet. Pulmonic Valve The pulmonic valve is normal in structure and function. There is no pulmonic valvular regurgitation. Great Vessels The aortic root is normal size. Pericardium/Pleural There is no pericardial effusion. Conclusion A complete two-dimensional transthoracic echocardiogram was performed (2D, M-mode, Doppler and color flow Doppler). Ejection Fraction = 55-60%. There is distal anterior septal dyskinesis from pacemaker activity. There is LV dysschrony. There is a pacemaker lead in the right ventricle. The right ventricle is normal size. The left atrium is mildly dilated. Right atrial size is normal. The mitral valve leaflets appear thickened, but open well. There is mild mitral annular calcification. There is trace mitral regurgitation. The tricuspid valve is normal in structure and function. There is mild tricuspid regurgitation. Right ventricular systolic pressure is 43mmHg. S/P #21 AVR Magna Bovine valve. There is turbulent flow noted thru the prosthetic valve with a mean gradient of 36 mmHg. This is higher than the previous exam of 05/25/2015 when there was a aortic valve mean of 22mmHg. Moderate valvular aortic stenosis. The Ao V2 max is 3.5 m/sec with a Ao mean PG of 36 mmHg. There is no pericardial effusion. Final Reading Physician: Shena Griffin signed on 08/28/2016 03:39 PM Ordering Physician: Bryce Fraga Performed By: Dmitri Quiñonez, DEMARCS
[2016-08-28] MEDS: POLYETHYLENE GLYCOL 3350 17 GM PKT PO SCH (16:49)
[2016-08-29] MEDS: LEVOTHYROXINE 50 MCG TAB PO SCH (05:17)
[2016-08-29] MEDS: CARBIDOPA/LEVODOPA 25 MG/100 MG TAB PO SCH ×4 (05:17→19:32)
[2016-08-29 05:22] LABS: % IMMATURE GRANULYOCYTES 0.7 % (0.0-1.1); ABSOLUTE IMMATURE GRANULOCYTES 0.08 10^3/uL (0.00-0.10); ADD DIFF? NO; ADD MORPH? NO; ADD SCAN? NO; ATYPICAL LYMPHOCYTE FLAG 20 (0-99); FRAGMENT RBC FLAG 20 (0-99); HEMATOCRIT 28.9 % (40.0-51.0); HEMOGLOBIN 9.5 g/dL (13.7-17.5); LEFT SHIFT FLG 0 (0-99); LIPEMIA HEMOLYSIS FLAG 80 (0-99); MEAN CELL HEMOGLOBIN 34.7 pg (27.9-34.1); MEAN CELL HEMOGLOBIN CONCENTR. 32.9 g/dL (32.4-36.7); MEAN CELL VOLUME 105.5 fL (81.5-99.8); MEAN PLATELET VOLUME 12.1 fL (8.7-11.7); PLATELET CLUMPS FLAG 0 (0-99); PLATELET COUNT 121 10^3/uL (150-400); RED BLOOD CELL COUNT 2.74 10^6/uL (4.40-6.38); RED CELL DISTRIBUTION WIDTH 18.6 % (11.5-15.2)
[2016-08-29] MEDS: valACYclovir 500 MG TAB PO SCH (08:09)
[2016-08-29] MEDS: SENNOSIDES/DOCUSATE SODIUM TAB PO SCH ×2 (08:09→19:32)
[2016-08-29] MEDS: ACETAMINOPHEN 500 MG TAB PO SCH ×2 (08:09→19:32)
[2016-08-29] MEDS: amLODIPine BESYLATE 5 MG TAB PO SCH (08:10)
[2016-08-29] MEDS: OMEGA-3 FATTY ACIDS 1,000 MG CAP PO SCH (08:10)
[2016-08-29] MEDS: ENOXAPARIN 40 MG/0.4 ML SYR SC SCH (08:10)
[2016-08-29] MEDS: ASPIRIN 81 MG CHEWABLE TAB PO SCH (08:11)
[2016-08-29] MEDS: PANTOPRAZOLE SODIUM 40 MG TAB PO SCH (08:11)
[2016-08-29] MEDS: CHOLECALCIFEROL VIT D3 2,000 UNITS TAB/CAP PO SCH (08:11)
[2016-08-29] MEDS: LISINOPRIL 20 MG TAB PO SCH (08:11)
[2016-08-29] MEDS: GLUCOSAMINE/CHONDROITIN CAP PO SCH (08:11)
[2016-08-29] MEDS ORDERED: CANN-EASE 2 GM TUBE TP ONE (10:27)
[2016-08-29 15:35] VITALS: RESP 16
--- NOTE | 2016-08-29 16:40 | SOAPPROG ---
SOMOLLY Progress Note Assessment/Plan: Assessment: 86y M s/p Open pinning of R femoral neck, doing well Plan: - Continue physical therapy - Patient has very limited help at home and would likley benefit from placement at a facility. Patient's has a particular place in mind that has treated him before apparently - Toe-touch weight bearing - DVT ppx - Keep dressing clean and dry - Followup with Dr. Mclaughlin in two weeks postop for wound check 08/29/16 16:35 Subjective: S: At 6AM this morning, patient was comfortable in bed. Said that he had only stood with PT yesterday - was hoping ot make continued progress today. Pain controlled Objective: Vital Signs Temp Pulse Resp BP Pulse Ox 37.1 C 90 16 105/54 L 92 08/29/16 15:35 08/29/16 15:35 08/29/16 15:35 08/29/16 15:35 08/29/16 15:35 Laboratory Results 08/29/16 04:51 08/28/16 04:49 08/28/16 08/29/16 08/30/16 05:59 05:59 05:59 Intake Total 250 400 Output Total 350 850 375 Balance -100 -450 -375 PE: SILT S/S/SP/DP/T, 4+/5 EHL/FHL/TA/GS, WWP Dressing CDI ICD10 Worksheet Patient Problems: Problems Problem Status Diagnosed Closed right hip fracture Acute Dislocation of right ring finger Acute Postoperative complete heart block Acute S/P aortic valve replacement with bioprosthetic valve Acute S/P placement of cardiac pacemaker Acute BPH (benign prostatic hyperplasia) Chronic COPD (chronic obstructive pulmonary disease) Chronic GERD (gastroesophageal reflux disease) Chronic Hypertension Chronic Hypothyroid Chronic Nocturnal hypoxia Chronic Physical deconditioning Chronic Severe calcific aortic valve stenosis Chronic
[2016-08-29] MEDS: POLYETHYLENE GLYCOL 3350 17 GM PKT PO SCH (17:23)
--- NOTE | 2016-08-29 22:55 | SOAPPROG ---
SOAP Progress Note Assessment/Plan: Assessment: Hip fracture, SP repair, doing well. Plan: SNF rehab when stable. 08/29/16 22:55 Subjective: No new complaints. Hip still hurting but some better. No shortness of breath or chest pain. No significant edema Objective: Vital Signs Temp Pulse Resp BP Pulse Ox 37.1 C 90 16 105/54 L 92 08/29/16 15:35 08/29/16 15:35 08/29/16 15:35 08/29/16 15:35 08/29/16 15:35 Laboratory Results 08/29/16 04:51 08/28/16 04:49 08/28/16 08/29/16 08/30/16 05:59 05:59 05:59 Intake Total 051 067 4600 Output Total 350 850 975 Balance -100 -450 225 Lungs clear to auscultation. COR RRR with 2/6 sej mumur at LUSB. no significant leg edema. Alert and oriented. ICD10 Worksheet Patient Problems: Problems Problem Status Diagnosed Closed right hip fracture Acute Dislocation of right ring finger Acute Postoperative complete heart block Acute S/P aortic valve replacement with bioprosthetic valve Acute S/P placement of cardiac pacemaker Acute BPH (benign prostatic hyperplasia) Chronic COPD (chronic obstructive pulmonary disease) Chronic GERD (gastroesophageal reflux disease) Chronic Hypertension Chronic Hypothyroid Chronic Nocturnal hypoxia Chronic Physical deconditioning Chronic Severe calcific aortic valve stenosis Chronic
[2016-08-29 23:15] VITALS: O2SAT 95
[2016-08-30] MEDS: CARBIDOPA/LEVODOPA 25 MG/100 MG TAB PO SCH ×3 (05:03→15:08)
[2016-08-30] MEDS: LEVOTHYROXINE 50 MCG TAB PO SCH (05:03)
--- NOTE | 2016-08-30 06:29 | SOAPPROG ---
SOAP Progress Note Assessment/Plan: Assessment: 86y M s/p Open pinning of R femoral neck, doing well Plan: - Continue physical therapy - discharge to facility when appropriate - Toe-touch weight bearing - DVT ppx - Keep dressing clean and dry - Followup with Dr. Mclaughlin in two weeks postop for wound check (have patient call [phone] to confirm for 09/08) 08/30/16 06:29 Subjective: Pain controlled. DOing better with PT. Noticing bulk of RUE splint Objective: Vital Signs Temp Pulse Resp BP Pulse Ox 37.3 C 98 16 123/66 H 95 08/29/16 23:14 08/29/16 23:14 08/29/16 23:14 08/29/16 23:14 08/29/16 23:14 Laboratory Results 08/29/16 04:51 08/28/16 04:49 08/29/16 08/30/16 08/31/16 05:59 05:59 05:59 Intake Total 400 1550 Output Total 850 1275 Balance -450 275 AxOx3. SILT S/S/SP/DP/T. +EHL/FHL/TA/GS CDI ICD10 Worksheet Patient Problems: Problems Problem Status Diagnosed Closed right hip fracture Acute Dislocation of right ring finger Acute Postoperative complete heart block Acute S/P aortic valve replacement with bioprosthetic valve Acute S/P placement of cardiac pacemaker Acute BPH (benign prostatic hyperplasia) Chronic COPD (chronic obstructive pulmonary disease) Chronic GERD (gastroesophageal reflux disease) Chronic Hypertension Chronic Hypothyroid Chronic Nocturnal hypoxia Chronic Physical deconditioning Chronic Severe calcific aortic valve stenosis Chronic
[2016-08-30 07:19] VITALS: BP 128/69; PULSE 90; TEMP 98
[2016-08-30] MEDS: SENNOSIDES/DOCUSATE SODIUM TAB PO SCH (08:12)
[2016-08-30] MEDS: GLUCOSAMINE/CHONDROITIN CAP PO SCH (08:12)
[2016-08-30] MEDS: ASPIRIN 81 MG CHEWABLE TAB PO SCH (08:13)
[2016-08-30] MEDS: valACYclovir 500 MG TAB PO SCH (08:13)
[2016-08-30] MEDS: CHOLECALCIFEROL VIT D3 2,000 UNITS TAB/CAP PO SCH (08:13)
[2016-08-30] MEDS: LISINOPRIL 20 MG TAB PO SCH (08:13)
[2016-08-30] MEDS: amLODIPine BESYLATE 5 MG TAB PO SCH (08:14)
[2016-08-30] MEDS: ENOXAPARIN 40 MG/0.4 ML SYR SC SCH (08:14)
[2016-08-30] MEDS: OMEGA-3 FATTY ACIDS 1,000 MG CAP PO SCH (08:14)
[2016-08-30] MEDS: POLYETHYLENE GLYCOL 3350 17 GM PKT PO SCH (08:15)
[2016-08-30] MEDS: oxyCODONE IR 5 MG TAB PO PRN ×3 (08:19→15:07)
[2016-08-30] MEDS: ACETAMINOPHEN 500 MG TAB PO SCH (08:20)
[2016-08-30] MEDS: PANTOPRAZOLE SODIUM 40 MG TAB PO SCH (08:29)
--- NOTE | 2016-08-30 09:57 | SOAPPROG ---
KALLI Progress Note Assessment/Plan: Assessment: Plan: 08/27/16 14:13 right hip fx--repair planned for today. Patient is NPO, takes only ASA 81 mg daily for anticoag. Add VTE prevention meds after surgery. Allergy--urinary retention from benzos. Proceed with surgery right ring finger sublux--repair OR prior aortic valve replacement 04/2015 doing well. Does cardiac rehab 3x/week without difficulty. murmur--prior valve replacement check ECHO in am 08/28/16 08:42 s/p right hip repair--will start the PT/OT process, will be difficult with Rt hand injuries, perhaps a platform walker murmur prior aortic valve replacement--check echo WBC elevation, suspect reactive--follow post op VTE prevention lovenox HTN--stable resume lisinopril and amlodipine at half baseline doses 08/30/16 09:56 AVR with murmur--f/u with Dr Pathak as an outpatient s/p right hip fracture and repair--SNF today HTN--stable COPD--same meds, oxygen as needed Subjective: anticipated pain and challenges, stable Objective: Vital Signs Temp Pulse Resp BP Pulse Ox 36.6 C 90 16 128/69 H 95 08/30/16 07:18 08/30/16 07:18 08/30/16 07:18 08/30/16 07:18 08/30/16 07:18 Laboratory Results 08/29/16 04:51 08/28/16 04:49 08/29/16 08/30/16 08/31/16 05:59 05:59 05:59 Intake Total 400 1550 Output Total 850 1275 100 Balance -450 275 -100 Gen: NAD Heart: RRR Echo with some valve issues on AVR RUE in dressing with splint Right hip CDI WBC improved Hgb as expected ICD10 Worksheet Patient Problems: Problems Problem Status Diagnosed Closed right hip fracture Acute Dislocation of right ring finger Acute Postoperative complete heart block Acute S/P aortic valve replacement with bioprosthetic valve Acute S/P placement of cardiac pacemaker Acute BPH (benign prostatic hyperplasia) Chronic COPD (chronic obstructive pulmonary disease) Chronic GERD (gastroesophageal reflux disease) Chronic Hypertension Chronic Hypothyroid Chronic Nocturnal hypoxia Chronic Physical deconditioning Chronic Severe calcific aortic valve stenosis Chronic
--- NOTE | 2016-08-30 10:04 | PDIAF ---
- Diagnosis Diagnosis: right hip fracture, right hand fracture Code Status: Full Code - Medication Management Discharge Medications: Medications to Continue on Transfer Levothyroxine [Synthroid 50 mcg (*)] 50 mcg PO DAILY06 12/09/13 [Last Taken 12/06 08:00] Gluc 2Kcl/Chondr/Karime Hy/Hy AC [Glucosamine & Chondroitin Cap] 1 cap PO DAILY [Last Taken 08/27/16 08:00] [place]-3 Fatty Acids/Fish Oil [[place] 3 1,000 mg Softgel] 1 cap PO DAILY 05/07/15 [Last Taken 08/27/16 08:00] Omeprazole Magnesium [Prilosec Otc] 20 mg PO DAILY 05/07/15 [Last Taken 08:00] Aspirin [Aspirin 81mg (*)] 81 mg PO DAILY #100 tab 05/19/15 [Last Taken 08:00] Carbidopa/Levodopa 25/100Mg [Sinemet 25/100 MG (*)] 1 tab PO QID 08/27/16 [Last Taken 08/27/16 08:00] Cholecalciferol Vit D3 [Vitamin D3 2000 units tab (OTC)] 2,000 units PO DAILY [Last Taken 08/27/16 08:00] Oxymetazoline HCl [Afrin Nasal [place]] 1 spray EACHNARE DAILY PRN 08/27/16 [Last Taken 08/26/16] Valacyclovir HCl [Valtrex] 1,000 mg PO DAILY 08/27/16 [Last Taken 08/27/16 08:00 ] Acetaminophen [Tylenol 325mg (*)] 650 mg PO Q4HRS PRN #0 tab 08/30/16 [Last Taken Unknown] Enoxaparin [Lovenox 40 MG (*)] 40 mg SC DAILY #0 syr 08/30/16 [Last Taken Unknown] Ibuprofen [Motrin (*)] 400 mg PO Q4HRS PRN #0 tab 08/30/16 [Last Taken Unknown] Lisinopril [Zestril 20 mg (*)] 20 mg PO DAILY #0 tab 08/30/16 [Last Taken Unknown] Ondansetron Odt [Zofran Odt 4 mg (*)] 4 mg PO Q4HRS PRN #0 tab 08/30/16 [Last Taken Unknown] Polyethylene Glycol 3350 [Miralax 17 gm (*)] 17 gm PO DAILY PRN #0 pkt 08/30/16 [Last Taken Unknown] Sennosides/Docusate Sodium [Senokot-S] 1 - 2 tab PO BID #0 tab 08/30/16 [Last Taken Unknown] amLODIPine BESYLATE [Norvasc 5 mg (*)] 5 mg PO DAILY #0 tab 08/30/16 [Last Taken Unknown] oxyCODONE IR [Oxycodone Ir (*)] 5 - 10 mg PO Q3HRS PRN #0 tab 08/30/16 [Last Taken Unknown] Group Home Antibiotics: n/a Discharge Medications: Refer to the Discharge Home Medication list for PRN reason. PICC Care - Routine: N/A - Orders Services needed: Registered Nurse, Physical Therapy, Occupational Therapy Oxygen: 0-3 lpm for saturations 90% or greater Diet Recommendation: no restrictions on diet Diet Texture: Regular Texture Diet, Thin Liquids Tube feeding: n/a Weigh Patient: weekly Kang: No Wound Care Instructions: per ortho Sutures/Chase Site: per ortho Activity/Weight Bearing Restrictions: touch down weight bearing right foot Equipment: platform walker - Labs/Radiology CBC Date: 09/01/16 (pls fax to [phone]) - Follow Up Care Current Providers and Referrals: Harsh Saunders MD [Primary Care Provider] - Arvind Mclaughlin MD [Medical Doctor] - follow up in 2 weeks (CALL FOR APPT)
--- NOTE | 2016-08-30 13:20 | GDS ---
[f rep st] DISCHARGE SUMMARY Date of transfer to nursing home facility: 08/30/2016. REASON FOR ADMISSION: Right hip fracture secondary to fall in garage, right hand fracture secondary to same fall. DISCHARGE DIAGNOSES: Right hip fracture secondary to fall in garage, right hand fracture secondary t o same fall. HOSPITAL COURSE: Patient was admitted to the ER 12 hours after he had fallen in his garage. He came in on personal vehicle. He was found to have a femoral neck fracture, as well as subluxations with secondary fractures in his right hand. These were repaired after consultation with Dr. Mclaughlin, orthope dic surgeon. He has had screw repair/fixation of his right femoral neck fracture, and right hand has been appropriately reduced and has been placed in a splint. He has had some issues with constipatio n and limitations in touchdown where weightbearing has made ambulation somewhat difficult. He will b e transferred to nursing home facility for rehabilitation at [facility]. He will be given a prescription for oxycodone 5 mg tablets. He will continue his regular medications. He morel s a history of hypertension and typically takes 40 mg of lisinopril and 10 mg amlodipine. His blood pressure has been lower here, so those doses have both been reduced by 50%. This has been good for h is overall blood pressure averaging in the 120 or so systolic range. He will be seen in the office o amanda the next week or two and will check a CBC on Sunday to verify stability in his red blood cell cou nt. /[id number]
--- NOTE | 2016-09-01 13:45 | SUROPNOTE ---
PEDRO Operative Report - Surgery Orthopaedic Operative Report Preop Diagnosis: Right femoral neck fracture Postop Diagnosis: same Procedure: R femoral neck fracture open pinning. Indication: The patient suffered a right femoral neck fracture after falling in his garage. He walked to the couch, watched the Superbowl and then could ambulate well due to pain. Operative report: consent was reviewed with the patient and his family. They elected to proceed. Patient was taken to the OR and transfer to the bed. Anesthesia was induced. Patients right leg was placed into the fracture table leg vines. Care was taken not to apply distracting traction that we could dislodge the fracture. The contralateral leg was flexed at the hip and knee and slightly internally rotated and secured with the leg vines to allow the sea arm to image the right hip.The leg was prepped and draped in the typical fashion. A timeout was performed to confirm the patient's identity, surgery, and sight.The bony landmarks of the right proximal femur were palpated and marked out. A longitudinal incision was created along the lateral aspect of the femur centered on the anticipated entry site for the screws, based on preliminary fluoroscopic imaging of the right hip in the OR. That imaging showed a valgus impacted femoral neck fracture without signs of distraction and with a continuous inferior cortical margin. A guide wire wasdissection was carried down to the IT band. The IT band was split, and the lateral femoral cortex was exposed. A guide wire was placed along the inferior border of the femoral neck with a mid-shaft starting point and the tip placed just shy of the subchondral surface of the femoral head. The pin was checked on multiple views to ensure that it was not beyond the femoral head surface. A second pin was then placed under fluoroscopic guidance along the anterior aspect of the femoral neck and more superior. The trajectory was set to be approximately parallel to the first pin. Once this position was satisfactory, another pin was introduced along the posterior superior aspect of the femoral neck, again staying close to the border of the femoral neck to ensure the optimal spread of the pins. This pin position was also checked fluoroscopy. The pins were measured for 6.5 mm cannulated screws, partially threaded. The inferior pin was drilled first with a cannulated bit. The screw was then placed such that the threads were not protruding from the femoral head and the screw head was firmly against the femoral cortex. Similarly, the anterior pin was drilled and another cannulated screw placed there with position checked on fluoroscopy. Finally, the posterior superior screw was drilled and the final screw placed there. The screw was adjusted based on concerns that it might be too long and threatened the federal head cortex integrity. After confirming fluoroscopy was performed, the surgical site was thoroughly irrigated. The IT band was closed with number one vicryl sutures. Subcutaneous skin was closed with 2-O vicryl sutures. Finally, the skin was closed with a series of desiree. A sterile dressing comprised of xeroform, gauze, ABDs, and tape was placed over the hip wound. The patient was woken up from anesthesia after being taken out of the fracture table leg positioning. He was transferred to the stretcher and taken to the PACU Counts were correct at the conclusion of the case. I was present for the entirety of the case. Competitions: none EBL: 300 mL Drains: none Implants: Synthes 6.5 mm cannulated screws.
== END 2016-08-30 15:14 | DRG 482 ==
LOC: F3N 14:30
PROVIDERS: ADMIT Internal Medicine; ATTEND Internal Medicine
PROC: 0RSWXZZ Reposition Right Finger Phalangeal Joint, External Approach (ICD-10-PCS; principal; 2016-08-27 16:38)
PROC: 0QS604Z Reposition Right Upper Femur with Internal Fixation Device, Open Approach (ICD-10-PCS; principal; 2016-08-27 16:38)
PROC: 0RSWXZZ Reposition Right Finger Phalangeal Joint, External Approach (ICD-10-PCS; 2016-08-27 16:38)
DX: S72.011A Unspecified intracapsular fracture of right femur, initial encounter for closed fracture (principal); S63.284A Dislocation of proximal interphalangeal joint of right ring finger, initial encounter; W01.0XXA Fall on same level from slipping, tripping and stumbling without subsequent striking against object, initial encounter; Y92.015 Private garage of single-family (private) house as the place of occurrence of the external cause; G20 Parkinson's disease; I10 Essential (primary) hypertension; E03.9 Hypothyroidism, unspecified; J44.9 Chronic obstructive pulmonary disease, unspecified; K21.0 Gastro-esophageal reflux disease with esophagitis; K59.00 Constipation, unspecified; Z95.0 Presence of cardiac pacemaker; Z95.2 Presence of prosthetic heart valve
CPT/HCPCS: 92610-GN; 97110-GP; 97116-GP; 97161-GP; 97166-GO; 97530-GO; 97530-GP; 97535-GO; C1713; C1769; G8978-GP-CM; G8979-GP-CK; G8987-GO-CM; G8988-GO-CK; G8996-GN-CH; G8997-GN-CH; G8998-GN-CH; J0690; J1100; J1650; J2001; J2405; J2704; J3010

== ENCOUNTER → 2017-01-18 | Outpatient (CLI) | payer OTHER | LOC: BHFA 15:30 | PROVIDERS: ATTEND Internal Medicine Cardiovascular Disease | DX: Z95.0 Presence of cardiac pacemaker (principal) ==

== ENCOUNTER → 2017-03-22 | Outpatient (CLI) | payer OTHER | LOC: FCPNEURO 20:00 | PROVIDERS: ATTEND Psychiatry & Neurology Sleep Medicine | DX: G47.33 Obstructive sleep apnea (adult) (pediatric) (principal) ==

== ENCOUNTER 2017-07-20 22:57 | Inpatient (IN) | payer OTHER ==
[2017-07-20 23:40] LABS: PLATELET COUNT 175 10^3/uL (150-400)
--- NOTE | 2017-07-20 23:47 | CPEKG ---
Heart Rate: 82 RR Interval: 732 P-R Interval: 200 QRSD Interval: 168 QT Interval: 416 QTC Interval: 486 P Powers: 4 QRS Powers: -90 T Wave Powers: 85 EKG Severity - ABNORMAL ECG - EKG Impression: SINUS RHYTHM EKG Impression: NONSPECIFIC IVCD WITH LAD EKG Impression: LEFT VENTRICULAR HYPERTROPHY Electronically Signed By: Perez Stanton 22-Jul-2017 06:04:43
[2017-07-21] MEDS ORDERED: AZITHROMYCIN 250 MG TAB PO ONE (00:11)
[2017-07-21] MEDS ORDERED: IPRATROPIUM/ALBUTEROL 3 ML DEYVIAL IH ONE (00:32)
--- NOTE | 2017-07-21 00:32 | EDPHY ---
H & P Stated Complaint: neighbors say pt having change in mental status Time Seen by Provider: 07/20/17 23:15 HPI/ROS: Chief Complaint: Altered mental status HPI: 87-year-old male who lives independently is being brought in by neighbor who noticed that his light was on this evening. When they went to check on him he was confused. In the waiting room he is noted to have an oxygen saturation of 76%. He states he is feeling much better now with supplemental oxygen. He states he has been having a cough for the last few days which has been productive of sputum. No fevers or chills. Denies any falls or head injuries. No nausea or vomiting. Does state that he has been treated for a urinary tract infection by his primary care physician is currently on ciprofloxacin. Denies nausea or vomiting. No chest pain. Some shortness of breath. Patient states that his only family lives out of state. He does have an advanced directive on file. He does not wish to be resuscitated but he does want antibiotics and fluids and other treatments. ROS: 10 point Review of Systems is negative except as noted in the HPI. Physical Exam: Gen: Awake, Alert, No Distress, mildly confused HEENT: Nose: no rhinorrhea Eyes: PERRLA, EOMI Mouth: Moist mucosa Neck: Supple, no JVD Chest: nontender, crackles at the bilateral bases right greater than left Heart: S1, S2 normal, 4/6 systolic murmur Abd: Soft, non-tender, no guarding Back: no CVA tenderness, no midline tenderness Ext: no edema, non-tender Skin: no rash Neuro: CN II-XII intact, Sensation grossly intact, Strength 5/5 in bilateral upper and lower extremities, very mild right facial asymmetry with loss of nasolabial fold without weakness - Medical/Surgical History Hx Asthma: No Hx Chronic Respiratory Disease: No Hx Diabetes: No Hx Cardiac Disease: Yes Hx Renal Disease: No Hx Cirrhosis: No Hx Alcoholism: No Hx HIV/AIDS: No Hx Splenectomy or Spleen Trauma: No Other PMH: aortic stenosis, hypertension, pacemaker parkinsons - Social History Smoking Status: Former smoker Constitutional: Initial Vital Signs Temperature (C) 36.8 C 07/20/17 23:01 Heart Rate 91 07/20/17 23:01 Respiratory Rate 18 07/20/17 23:01 Blood Pressure 120/57 L 07/20/17 23:01 O2 Sat (%) 87 L 07/20/17 23:01 O2 Delivery Mode Nasal Cannula O2 (L/minute) 4 Allergies/Adverse Reactions: diazepam [From Valium] Allergy (Severe, Verified 07/20/17 23:05) Other-Enter Comments midazolam HCl [From Versed] Allergy (Intermediate, Verified 07/20/17 23:05) Benzodiazepines Allergy (Verified 07/20/17 23:05) Home Medications: Medication Instructions Recorded Levothyroxine [Synthroid 50 mcg 50 mcg PO DAILY06 12/09/13 (*)] Glucosam/Chondr/Collagn/Hyalur 1 cap PO DAILY 05/07/15 [Glucosamine & Chondroitin Cap] [place]-3 Fatty Acids/Fish Oil 1 cap PO DAILY 05/07/15 [[place] 3 1,000 mg Softgel] Omeprazole Magnesium [Prilosec Otc] 20 mg PO DAILY 05/07/15 Aspirin [Aspirin 81mg (*)] 81 mg PO DAILY #100 tab 05/19/15 Carbidopa/Levodopa 25/100Mg 1 tab PO QID 08/27/16 [Sinemet 25/100 MG (*)] Cholecalciferol Vit D3 [Vitamin D3 2,000 units PO DAILY 08/27/16 2000 units tab (OTC)] Oxymetazoline HCl [Afrin Nasal 1 spray EACHNARE DAILY PRN 08/27/16 [place]] Valacyclovir HCl [Valtrex] 1,000 mg PO DAILY 08/27/16 Acetaminophen [Tylenol 325mg (*)] 650 mg PO Q4HRS PRN #0 tab 08/30/16 Ibuprofen [Motrin (*)] 400 mg PO Q4HRS PRN #0 tab 08/30/16 Lisinopril [Zestril 20 mg (*)] 20 mg PO DAILY #0 tab 08/30/16 Polyethylene Glycol 3350 [Miralax 17 gm PO DAILY PRN #0 pkt 08/30/16 17 gm (*)] Sennosides/Docusate Sodium 1 - 2 tab PO BID #0 tab 08/30/16 [Senokot-S] amLODIPine BESYLATE [Norvasc 5 mg 5 mg PO DAILY #0 tab 08/30/16 (*)] Ciprofloxacin 07/20/17 Medical Decision Making - Diagnostics EKG Interpretation: ECG time 11:46 p.m.. A tree since, ventricularly paced complex with a rate of 82 unchanged from prior Imaging Results: Imaging Impressions Chest X-Ray 07/20/17 23:32 Impression: Probable early right upper lobe pneumonia and left lower lobe pneumonia. Head CT 07/20/17 23:34 Impression: No evidence for acute intracranial abnormality. Periventricular and deep hemispheric white matter change that can be seen with small vessel ischemic disease. Results called and discussed with Perez Stanton MD at 07/21/2017 0:09. Imaging: I viewed and interpreted images myself ED Course/Re-evaluation: 87-year-old male with a new pneumonia and hypoxemia. He is improved on supplemental oxygen. I have discussed with his primary care physician: Dr. Saunders. He will admit to the hospital for further care. I have ordered azithromycin ceftriaxone. I have also some blood cultures. Influenza has also been sent. His blood pressure is appropriate. Patient does appear septic at this time. Does have significant leukocytosis. - Data Points Laboratory Results: Laboratory Results 07/20/17 23:18 07/20/17 23:18 07/20/17 07/20/17 07/20/17 23:18 23:18 23:14 WBC 22.50 10^3/uL H 10^3/uL (3.80-9.50) RBC 3.40 10^6/uL L 10^6/uL (4.40-6.38) Hgb 12.1 g/dL L g/dL (13.7-17.5) POC Hgb 12.9 gm/dL L gm/dL (13.7-17.5) Hct 35.2 % L % (40.0-51.0) POC Hct 38 % L % (40-51) MCV 103.5 fL H fL (81.5-99.8) MCH 35.6 pg H pg (27.9-34.1) MCHC 34.4 g/dL g/dL (32.4-36.7) RDW 19.7 % H % (11.5-15.2) Plt Count 175 10^3/uL 10^3/uL (150-400) MPV 10.9 fL fL (8.7-11.7) Neut % (Auto) Not Reported Lymph % (Auto) Not Reported [place] % (Auto) Not Reported Eos % (Auto) Not Reported Baso % (Auto) Not Reported Nucleat RBC Rel Count 0.0 % % (0.0-0.2) Absolute Neuts (auto) Not Reported Absolute Lymphs (auto) Not Reported Absolute Monos (auto) Not Reported Absolute Eos (auto) Not Reported Absolute Basos (auto) Not Reported Absolute Nucleated RBC 0.00 10^3/uL 10^3/uL (0-0.01) Immature Gran % Not Reported Seg Neutrophils % 62 % % Band Neutrophils % 24 % % Lymphocytes % 5 % % Monocytes % 8 % % Metamyelocytes % 1 % % Immature Gran # Not Reported Absolute Seg Neuts 13.95 10^/uL H 10^/uL (1.70-6.50) Absolute Band Neuts 5.40 10^3/uL H 10^3/uL (0.00-0.70) Absolute Lymphocytes 1.13 10^3/uL 10^3/uL (1.00-3.00) Absolute Monocytes 1.80 10^3/uL H 10^3/uL (0.30-0.80) Absolute Metamyelocyte 0.23 10^3/mL H 10^3/mL (0.00-0.00) Toxic Granulation PRESENT H Platelet Estimate ADEQUATE (ADEQ) Polychromasia 1+ H Hypochromasia 1+ H Oval Macrocytes 1+ H POC Sodium 141 mEq/L mEq/L (134-144) Sodium 143 mEq/L mEq/L (134-144) POC Potassium 3.8 mEq/L mEq/L (3.3-5.0) Potassium 4.1 mEq/L mEq/L (3.5-5.2) POC Chloride 102 mEq/L mEq/L (97-110) Chloride 104 mEq/L mEq/L (97-110) Carbon Dioxide 30 mEq/l mEq/l (22-31) Anion Gap 9 mEq/L mEq/L (8-16) POC BUN 18 mg/dL mg/dL (7-23) BUN 20 mg/dL mg/dL (7-23) Creatinine 1.1 mg/dL mg/dL (0.7-1.3) POC Creatinine 1.2 mg/dL mg/dL (0.7-1.3) Estimated GFR > 60 Glucose 99 mg/dL mg/dL (70-100) POC Glucose 105 mg/dL H mg/dL (70-100) Calcium 9.1 mg/dL mg/dL (8.5-10.4) Troponin I 0.061 ng/mL H ng/mL (0.000-0.034) Nasal Influenza A PCR Nasal Influenza B PCR 07/20/17 00:10 WBC RBC Hgb POC Hgb Hct POC Hct MCV MCH MCHC RDW Plt Count MPV Neut % (Auto) Lymph % (Auto) [place] % (Auto) Eos % (Auto) Baso % (Auto) Nucleat RBC Rel Count Absolute Neuts (auto) Absolute Lymphs (auto) Absolute Monos (auto) Absolute Eos (auto) Absolute Basos (auto) Absolute Nucleated RBC Immature Gran % Seg Neutrophils % Band Neutrophils % Lymphocytes % Monocytes % Metamyelocytes % Immature Gran # Absolute Seg Neuts Absolute Band Neuts Absolute Lymphocytes Absolute Monocytes Absolute Metamyelocyte Toxic Granulation Platelet Estimate Polychromasia Hypochromasia Oval Macrocytes POC Sodium Sodium POC Potassium Potassium POC Chloride Chloride Carbon Dioxide Anion Gap POC BUN BUN Creatinine POC Creatinine Estimated GFR Glucose POC Glucose Calcium Troponin I Nasal Influenza A PCR NEGATIVE FOR FLU A (NEGATIVE) Nasal Influenza B PCR NEGATIVE FOR FLU B (NEGATIVE) Medications Given: Potassium Chloride/Dextrose/Sod Cl (D5w 1/2 Ns W/ 20 Kcl/L) 1,000 mls @ 75 mls/ hr IV CONT ANGELLA Stop: 01/17/18 07:29 Last Admin: 07/21/17 07:51 Dose: 1,000 mls Discontinued Medications Albuterol/Ipratropium (Duoneb) 3 ml IH EDNOW ONE Stop: 07/21/17 00:33 Last Admin: 07/21/17 00:34 Dose: 3 ml Azithromycin (Zithromax) 500 mg PO EDNOW ONE PRN Reason: Protocol Stop: 07/21/17 00:12 Last Admin: 07/21/17 00:20 Dose: 500 mg Ceftriaxone Sodium/Dextrose (Rocephin 1 Gm (Premix)) 50 mls @ 100 mls/hr IV EDNOW ONE PRN Reason: Protocol Stop: 07/21/17 00:40 Last Admin: 07/21/17 00:20 Dose: 50 mls Point of Care Test Results: 07/20/17 23:14 POC Sodium 141 POC Potassium 3.8 POC Chloride 102 POC BUN 18 POC Creatinine 1.2 POC Glucose 105 H Departure - Departure Disposition: [facility] Inpatient Acute Clinical Impression: Pneumonia Condition: Fair
[2017-07-21] MEDS: D5W 1/2 NS W/ 20 KCl/L 1,000 ML IV SCH ×2 (07:51→21:01)
--- NOTE | 2017-07-21 09:56 | GHP ---
[f rep st] HISTORY AND PHYSICAL DATE OF ADMISSION: 07/21/2017 REASON FOR ADMISSION: Pneumonia. HISTORY OF PRESENT ILLNESS: The patient is an 87-year-old male who was found in a compromised state of health by his neighbors. Brought to the emergency room where he was diagnosed with a right middle lobe and upper lobe pneumonia. PAST MEDICAL HISTORY: Significant for chronic obstructive airway disease, reflux esophagitis, hypert ension, benign prostatic hyperplasia, aortic stenosis status post aortic valve replacement, Parkinson disease, multinodular goiter, hypogonadism, obstructive sleep apnea. CURRENT MEDICATIONS: 1. Levothyroxine 50 mcg daily. 2. Lisinopril 30 mg daily. 3. Amlodipine 5 mg 2 daily. 4. Vitamin D3 1,000 IU daily. 5. Prilosec 20 mg p.o. daily. 6. Aspirin 81 mg daily. 7. Carbidopa/levodopa 25/100, 1 tablet 3 times daily. 8. Valacyclovir 1 tablet every 24 hours. 9. Colace 100 mg daily. 10. MiraLAX once daily. 11. Tylenol as needed. 12. Metoprolol 25 mg once daily. 13. Oxybutynin 5 mg twice daily. REVIEW OF SYSTEMS: He was feeling weak last night, described as being confused, although his neighbo r says that his hearing aid batteries were bad and his confusion was more of a lack of hearing. He d oes have pretty good memory of the events of the evening before. He is aware he is in the hospital, is aware of the name of his neighbors who brought him in and aware of fact he was in the emergency ro om and was diagnosed with pneumonia. PHYSICAL EXAM: GENERAL: Reveals an 87-year-old male who appears appropriate for his age, lying in b ed, in no obvious distress, wearing oxygen. VITAL SIGNS: Blood pressure 147/68, pulse 76 and regular , oxygen saturations 97% 6 L, temperature is 98. HEENT: He is alert. He is oriented and appropriat e, although somewhat hard of hearing. Pupils equal and reactive. He is wearing hearing aids bilater ally. LUNGS: Right upper mid lung rales without wheezing. He has some increased tubular breath paxton nds. He has minimal left basilar rales. HEART: Regular rate and rhythm with a 2/6 systolic ejectio n murmur. ABDOMEN: Nontender. He has trace ankle edema. Pulses were palpable in his lower extremi ties. IMPRESSION: An 87-year-old male presents with pneumonia, history of Parkinson disease and chronic ob structive pulmonary disease. PLAN: Will admit. Will place on IV antibiotics. I will need to PT, OT, as well as speech therapy t o work with him and have a swallow evaluation. We will need to consider possible discharge to [facility] or assisted living facility, as I am not certain that his level of function of living alone at home has worked well. On a social history note, his recently after an extended bout of breast cancer. /[id number]/MODL
--- NOTE | 2017-07-21 13:30 | ASMTCMCOM ---
CM Note CM Note Notes: Patient admitted and diagnosed with Pneumonia. Per PT note, patient is normally independent at home, uses a cane. He has decreased activity tolerance right now but that should increase as his illness is treated. Current recommendation is home care, although Dr Dolan's note mentions possible SNF or [facility]. Patient's recently . CM will follow Date Signed: 07/21/2017 01:30 PM Electronically Signed By:Kristi Myrick RN
[2017-07-21] MEDS ORDERED: POLYETHYLENE GLYCOL 3350 17 GM PKT PO PRN (14:15)
[2017-07-21] MEDS ORDERED: OXYMETAZOLINE 30 ML NASAL SPRAY EACHNARE PRN (14:15)
--- NOTE | 2017-07-21 14:19 | ASMTCMCOM ---
CM Note CM Note Notes: I met patient's good friend and neighbor Warren Franklin ([phone]) who gave me some information about the patient. Patient has looked at a few [facility] - [facility] one - and knows that he needs a new living situation. Per Warren, patient will likely be ok to discharge home with home care with the understanding that he will move into an [facility] in the next month or so. Warren says there is a caregiver who helped with patient's who they could have stop in a few times a week. Per Warren, patient has a granddaughter in [place] who has not really been involved with the family but who has recently been in touch with patient. Warren is meeting with a family resource coordinator Sunday to help with some of patient's affairs. Date Signed: 07/21/2017 02:19 PM Electronically Signed By:Kristi Myrick RN
[2017-07-21] MEDS: CARBIDOPA/LEVODOPA 25 MG/100 MG TAB PO SCH ×2 (15:29→21:01)
[2017-07-21] MEDS: ACETAMINOPHEN 500 MG TAB PO SCH (21:01)
[2017-07-21] MEDS: OXYBUTYNIN CHLORIDE 5 MG TAB PO SCH (21:01)
[2017-07-21] MEDS: AZITHROMYCIN IV 500 MG in D5W 250 ML IV SCH (22:34)
[2017-07-22] MEDS: LEVOTHYROXINE 50 MCG TAB PO SCH (06:11)
[2017-07-22] MEDS ORDERED: NON-FORMULARY NEW DRUG (Valacyclovir Hcl [Valtrex] 1,000 MG) PO SCH (09:00)
[2017-07-22] MEDS ORDERED: FISH OIL PO SCH (09:00)
[2017-07-22] MEDS ORDERED: FATTY ACIDS PO SCH (09:00)
[2017-07-22] MEDS ORDERED: NON-FORMULARY NEW DRUG (Omeprazole Magnesium [Prilosec Otc] 20 MG) PO SCH (09:00)
[2017-07-22] MEDS ORDERED: OMEGA PO SCH (09:00)
[2017-07-22] MEDS: ACETAMINOPHEN 500 MG TAB PO SCH ×2 (09:33→21:26)
[2017-07-22] MEDS: CHOLECALCIFEROL VIT D3 1,000 UNITS TAB PO SCH (09:34)
[2017-07-22] MEDS: OXYBUTYNIN CHLORIDE 5 MG TAB PO SCH ×2 (09:34→21:26)
[2017-07-22] MEDS: OMEGA-3 FATTY ACIDS 1,000 MG CAP PO SCH (09:34)
[2017-07-22] MEDS: ASPIRIN 81 MG CHEWABLE TAB PO SCH (09:34)
[2017-07-22] MEDS: PANTOPRAZOLE SODIUM 40 MG TAB PO SCH (09:34)
[2017-07-22] MEDS: CARBIDOPA/LEVODOPA 25 MG/100 MG TAB PO SCH ×3 (09:34→21:27)
[2017-07-22] MEDS: DOCUSATE SODIUM 100 MG CAP PO SCH (09:34)
[2017-07-22] MEDS: METOPROLOL TARTRATE 25 MG TAB PO SCH (09:35)
[2017-07-22] MEDS: valACYclovir 500 MG TAB PO SCH (09:35)
[2017-07-22] MEDS: LISINOPRIL 20 MG TAB PO SCH (10:27)
--- NOTE | 2017-07-22 13:14 | SOAPPROG ---
SOAP Progress Note Assessment/Plan: Assessment: Pneumonia limproved Plan: Continue IV antibiotics. Follow closely. 07/22/17 13:13 Subjective: Feeling stronger. Appetite is good. No rossana pain or shortness of breath. Objective: Vital Signs Temp Pulse Resp BP Pulse Ox 98.0 F 67 16 123/65 H 92 07/22/17 11:15 07/22/17 11:15 07/22/17 11:15 07/22/17 11:15 07/22/17 11:15 07/21/17 07/22/17 07/23/17 05:59 05:59 05:59 Intake Total 160 700 400 Output Total 150 725 Balance 10 -25 400 Lungs with improved aeration. reduced rales ICD10 Worksheet Patient Problems: Problems Problem Status Onset Pneumonia Acute Closed right hip fracture Acute Dislocation of right ring finger Acute Postoperative complete heart block Acute S/P aortic valve replacement with bioprosthetic valve Acute S/P placement of cardiac pacemaker Acute BPH (benign prostatic hyperplasia) Chronic COPD (chronic obstructive pulmonary disease) Chronic GERD (gastroesophageal reflux disease) Chronic Hypertension Chronic Hypothyroid Chronic Nocturnal hypoxia Chronic Physical deconditioning Chronic Severe calcific aortic valve stenosis Chronic
--- NOTE | 2017-07-22 15:33 | ASMTCMCOM ---
CM Note CM Note Notes: PT recommending HC; OT=SNF; RN thinks SNF might be helpful given O2 needs during day as well as night. Date Signed: 07/22/2017 03:33 PM Electronically Signed By:Lizzie Joseph LCSW
--- NOTE | 2017-07-22 16:32 | ASMTCMCOM ---
CM Note CM Note Notes: RN reports that patient's friends have found a room in independent living at [facility]. He can also have skilled HC-PT/OT and plans to hire homemakers. Date Signed: 07/22/2017 04:31 PM Electronically Signed By:Lizzie Joseph LCSW
[2017-07-22] MEDS: AZITHROMYCIN IV 500 MG in D5W 250 ML IV SCH (21:48)
[2017-07-23] MEDS: LEVOTHYROXINE 50 MCG TAB PO SCH (07:20)
[2017-07-23] MEDS: ACETAMINOPHEN 500 MG TAB PO SCH ×2 (08:27→20:42)
[2017-07-23] MEDS: CHOLECALCIFEROL VIT D3 1,000 UNITS TAB PO SCH (08:28)
[2017-07-23] MEDS: CARBIDOPA/LEVODOPA 25 MG/100 MG TAB PO SCH ×3 (08:28→20:43)
[2017-07-23] MEDS: ASPIRIN 81 MG CHEWABLE TAB PO SCH (08:28)
[2017-07-23] MEDS: OMEGA-3 FATTY ACIDS 1,000 MG CAP PO SCH (08:29)
[2017-07-23] MEDS: DOCUSATE SODIUM 100 MG CAP PO SCH (08:29)
[2017-07-23] MEDS: PANTOPRAZOLE SODIUM 40 MG TAB PO SCH (08:29)
[2017-07-23] MEDS: OXYBUTYNIN CHLORIDE 5 MG TAB PO SCH ×2 (08:29→20:42)
[2017-07-23] MEDS: METOPROLOL TARTRATE 25 MG TAB PO SCH (08:29)
[2017-07-23] MEDS: LISINOPRIL 20 MG TAB PO SCH (08:29)
[2017-07-23] MEDS: valACYclovir 500 MG TAB PO SCH (08:40)
--- NOTE | 2017-07-23 14:20 | SOAPPROG ---
SOAP Progress Note Assessment/Plan: Assessment: Pneumonia limproved. Bioprosthetic aortic valve Plan: Continue IV antibiotics. Follow closely. Will DC to [facility] in AM if stable. 07/22/17 13:13 07/23/17 14:19 Subjective: Feeling better. Able to ambulate in [facility] oxygen. Objective: Vital Signs Temp Pulse Resp BP Pulse Ox 97.8 F 65 14 118/66 96 07/23/17 12:09 07/23/17 12:09 07/23/17 12:07/23/17 12:09 07/23/17 12:09 07/22/17 07/23/17 07/24/17 05:59 05:59 05:59 Intake Total 700 750 500 Output Total 725 Balance -25 750 500 Lungs without rales. Oxygen still 84% on RA. COR rrr [facility] 2/6 SEJ murmur at LUSB. ICD10 Worksheet Patient Problems: Problems Problem Status Onset Pneumonia Acute Closed right hip fracture Acute Dislocation of right ring finger Acute Postoperative complete heart block Acute S/P aortic valve replacement with bioprosthetic valve Acute S/P placement of cardiac pacemaker Acute BPH (benign prostatic hyperplasia) Chronic COPD (chronic obstructive pulmonary disease) Chronic GERD (gastroesophageal reflux disease) Chronic Hypertension Chronic Hypothyroid Chronic Nocturnal hypoxia Chronic Physical deconditioning Chronic Severe calcific aortic valve stenosis Chronic
[2017-07-23] MEDS: AZITHROMYCIN IV 500 MG in D5W 250 ML IV SCH (20:43)
[2017-07-23 20:51] VITALS: RESP 16
[2017-07-24] MEDS: LEVOTHYROXINE 50 MCG TAB PO SCH (07:19)
[2017-07-24] MEDS: PANTOPRAZOLE SODIUM 40 MG TAB PO SCH (07:41)
[2017-07-24] MEDS: CHOLECALCIFEROL VIT D3 1,000 UNITS TAB PO SCH (07:41)
[2017-07-24] MEDS: DOCUSATE SODIUM 100 MG CAP PO SCH (07:41)
[2017-07-24] MEDS: LISINOPRIL 20 MG TAB PO SCH (07:42)
[2017-07-24] MEDS: OXYBUTYNIN CHLORIDE 5 MG TAB PO SCH (07:42)
[2017-07-24] MEDS: valACYclovir 500 MG TAB PO SCH (07:42)
[2017-07-24] MEDS: METOPROLOL TARTRATE 25 MG TAB PO SCH (07:45)
[2017-07-24] MEDS: ACETAMINOPHEN 500 MG TAB PO SCH (07:45)
[2017-07-24] MEDS: CARBIDOPA/LEVODOPA 25 MG/100 MG TAB PO SCH ×2 (07:46→16:10)
[2017-07-24] MEDS: ASPIRIN 81 MG CHEWABLE TAB PO SCH (07:46)
[2017-07-24] MEDS: OMEGA-3 FATTY ACIDS 1,000 MG CAP PO SCH (07:46)
[2017-07-24 08:01] VITALS: BP 126/66; PULSE 987; TEMP 97.8
--- NOTE | 2017-07-24 10:07 | PDIAF ---
- Diagnosis Code Status: Do Not Resuscitate - Medication Management Discharge Medications: Medications to Continue on Transfer Levothyroxine [Synthroid 50 mcg (*)] 50 mcg PO DAILY06 12/09/13 [Last Taken ] [place]-3 Fatty Acids/Fish Oil [[place] 3 1,000 mg Softgel] 1 cap PO DAILY 05/07/15 [Last Taken 07/20/17] Omeprazole Magnesium [Prilosec Otc] 20 mg PO DAILY 05/07/15 [Last Taken 07/20/17 ] Aspirin [Aspirin 81mg (*)] 81 mg PO DAILY #100 tab 05/19/15 [Last Taken 07/20/17 ] Carbidopa/Levodopa 25/100Mg [Sinemet 25/100 MG (*)] 1 tab PO TID 08/27/16 [Last Taken 07/20/17] Oxymetazoline HCl [Afrin Nasal [place]] 1 spray EACHNARE DAILY PRN 08/27/16 [Last Taken 08/26/16] Valacyclovir HCl [Valtrex] 1,000 mg PO DAILY 08/27/16 [Last Taken 08/27/16 08:00 ] Polyethylene Glycol 3350 [Miralax 17 gm (*)] 17 gm PO DAILY PRN #0 pkt 08/30/16 [Last Taken Unknown] Acetaminophen [Tylenol ES 500 mg (*)] 500 mg PO BID 07/21/17 [Last Taken 08:00] Cholecalciferol Vit D3 [Vitamin D3 (*)] 1,000 units PO DAILY 07/21/17 [Last Taken 07/20/17] Docusate Sodium [Colace 100 MG (*)] 100 mg PO DAILY 07/21/17 [Last Taken Unknown ] Lisinopril [Zestril 20 mg (*)] 30 mg PO DAILY 07/21/17 [Last Taken 07/20/17] Metoprolol Tartrate [Lopressor 25 mg (*)] 25 mg PO DAILY 07/21/17 [Last Taken Unknown] Oxybutynin Chloride [Ditropan] 5 mg PO BID 07/21/17 [Last Taken Unknown] amLODIPine BESYLATE [Amlodipine Besylate] 10 mg PO DAILY 07/21/17 [Last Taken ] Cefuroxime Axetil [Cefuroxime] 500 mg PO BID 5 Days #10 tablet 07/24/17 [Last Taken Unknown] Discharge Medications: Refer to the Discharge Home Medication list for PRN reason. - Orders Services needed: Home Care, Registered Nurse, Physical Therapy, Occupational Therapy Home Care Face to Face: I certify that this patient was under my care and that I had the required [id number] encounter meeting the encounter requirements on the discharge day. My findings support the fact that the patient is homebound as defined in Home Care Face to Face Continued: CMS Chapter 7 Medicare Benefits Manual 30.1.1 , The condition of the patient is such that there exists a normal inability to leave home and consequently, leaving home would require a considerable and taxing effort. Isolation Type: None Diet Recommendation: no restrictions on diet Diet Texture: Dysphagia 3 - Advanced - Moist, Bite-Size - Follow Up Care Current Providers and Referrals: Harsh Saunders MD [Primary Care Provider] - As per Instructions
--- NOTE | 2017-07-24 10:31 | PDFACE2FAC ---
Face to Face Encounter 1. I certify that this patient is under my care and that I, or a nurse practitioner or physician's security assistant working with me, had a [id number] encounter that meets the physician [id number] encounter requirements with this patient on 07/24/17. 2. I certify that based on my findings, the following services are medically necessary home health services: [X Nursing] [X Physical Therapy] [X Speech-Language Pathology] 3. The medical condition and clinical findings that support the need for specialized skills, knowledge and judgement of the above services are: [] 4. I certify this patient is homebound* because [the patient's condition restricts their ability to leave their home except with the assistance of another individual or the aid of a supportive device.] I certify that this patient is confined to his/her home and needs intermittent penitentiary care, physical and/or speech therapy. This patient is under my care and I have authorized home health services. * Homebound is defined by Medicare as follows: absences from home require considerable and tacking effort and or for medical reasons or christianity services or are infrequent or of short duration when for other reasons*.
--- NOTE | 2017-07-24 10:35 | PDHOMEO2F ---
Home Oxygen Face to Face Home Orders: I certify that a physician or a nurse practitioner or physician's project administrative assistant has had a [id number] encounter with this patient on the date of this order due to the diagnosis listed, which relates to the primary reason the patient requires home oxygen. Alternative treatments have been tried, or considered, and deemed ineffective. It is anticipated that supplemental oxygen will result in improvement with treatment. 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 Length of time home oxygen needed: 99 years (He may be able to resume oxygen at night only when he is stronger.)
--- NOTE | 2017-07-24 11:18 | GDS ---
[f rep st] DISCHARGE SUMMARY ADMISSION DIAGNOSIS: Pneumonia. DISCHARGE DIAGNOSIS: Pneumonia. PROCEDURES: IV antibiotics, physical therapy, occupational therapy. HOSPITAL COURSE: The patient was admitted with pneumonia. He was hypoxic and weak. He was placed o n antibiotics consisting of ceftriaxone and azithromycin. He improved fairly quickly and on the day of discharge, he was able to dress himself with minimal assistance. He was still requiring oxygen at 2 L/minute. Normally, he requires oxygen at nighttime but not during the daytime. Will need to niesha nge oxygen to 24 hour oxygen until he is stronger. He was ambulating independently and eating well, having no specific problems. MEDICATIONS AT TIME OF DISCHARGE: Amlodipine 10 mg daily. Aspirin 81 mg daily. Carbidopa levodopa 25/100 three times daily. Cholecalciferol D3 at 1000 international units daily. Docusate sodium 100 mg daily. Levothyroxine 50 mcg daily. Lisinopril 30 mg p.o. daily. Metoprolol succinate 25 mg adis ly. [place]-3 fatty acids 3000 mg daily. Omeprazole 20 mg daily. Oxybutynin 5 mg twice daily. Polye thylene glycol 17 g daily. Valacyclovir 1000 mg daily. Cefuroxime 500 mg twice daily. He will follow up with me in 1 week. /[id number]/MODL
[2017-07-24 11:50] VITALS: O2SAT 84
--- NOTE | 2017-07-24 17:08 | ASMTCMCOM ---
CM Note CM Note Notes: Pt medically stable for d/c w [facility] to [facility]. [facility] provided [place] address of [address] [place] [id number]. Date Signed: 07/24/2017 05:07 PM Electronically Signed By:BIPIN Oliveira
--- NOTE | 2017-07-25 09:12 | ASDISCHSUM ---
Discharge Information Plan Status:Home with Home Health Medically Cleared to Leave: Discharge Date:07/24/2017 05:16 PM CM D/C Disposition:Home Health Service ADT D/C Disposition:Home, Routine, Self-Care Projected Discharge Date:07/24/2017 11:00 AM Transportation at D/C:Friend Discharge Delay Reason: Follow-Up Date:07/24/2017 11:00 AM Discharge Slot: Final Diagnosis:PNA, Hypoxemia, AMS Placement Information Referral Type:*Home Health Care Services Referral ID:[id number] Provider Name:[facility] Address 1[address] Address 2: City:[place] Selection Factors: State:[place] Patient Contact Information Contact Name:ANDREI Relationship:Friend Address:[address] City:[place] Alternate Phone: State/Zip Code:[place] [address] Email: Financial Information Financial Class: Primary Plan Desc:MEDICARE INPATIENT Primary Plan Number:[id number] Secondary Plan Desc:[facility] Secondary Plan Number:[id number] Assessment Information [facility] CM Progress Note CM Note CM Note Notes: Patient admitted and diagnosed with Pneumonia. Per PT note, patient is normally independent at home, uses a cane. He has decreased activity tolerance right now but that should increase as his illness is treated. Current recommendation is home care, although Dr Dolan's note mentions possible SNF or [facility]. Patient's recently . CM will follow Date Signed: 07/21/2017 01:30 PM Electronically Signed By:Kristi Myrick RN [facility] CM Progress Note CM Note CM Note Notes: I met patient's good friend and neighbor Warren Franklin ([phone]) who gave me some information about the patient. Patient has looked at a few [facility] - [facility] was one - and knows that he needs a new living situation. Per Warren, patient will likely be ok to discharge home with home care with the understanding that he will move into an [facility] in the next month or so. Warren says there is a caregiver who helped with patient's who they could have stop in a few times a week. Per Warren, patient has a granddaughter in [place] who has not really been involved with the family but who has recently been in touch with patient. Warren is meeting with a high lift mule operator Sunday to help with some of patient's affairs. Date Signed: 07/21/2017 02:19 PM Electronically Signed By:Kristi Myrick RN [facility] CM Progress Note CM Note CM Note Notes: PT recommending HC; OT=SNF; RN thinks SNF might be helpful given O2 needs during day as well as night. Date Signed: 07/22/2017 03:33 PM Electronically Signed By:Lizzie Joseph LCSW [facility] CM Progress Note CM Note CM Note Notes: RN reports that patient's friends have found a room in independent living at [facility]. He can also have skilled HC-PT/OT and plans to hire homemakers. Date Signed: 07/22/2017 04:31 PM Electronically Signed By:Lizzie Joseph LCSW [facility] CM Progress Note CM Note CM Note Notes: Pt medically stable for d/c w [facility] to [facility] provided [place] address of [address] [place] [id number]. Date Signed: 07/24/2017 05:07 PM Electronically Signed By:BIPIN Oliveira Intervention Information Intervention Type:*IM-Signed Date of Service:07/24/2017 11:34 AM Patient Type:Inpatient Staff Member:Doreen Ott Hours: Discipline: Severity: Comment:
== END 2017-07-24 17:16 | disposition home or self-care (01) | DRG 195 ==
LOC: F2N 07-21 01:25 → F3N 07-21 12:23
PROVIDERS: ADMIT Internal Medicine; ATTEND Internal Medicine
DX: J18.9 Pneumonia, unspecified organism (principal); R09.02 Hypoxemia; G20 Parkinson's disease; I10 Essential (primary) hypertension; J44.9 Chronic obstructive pulmonary disease, unspecified; G47.33 Obstructive sleep apnea (adult) (pediatric); E03.9 Hypothyroidism, unspecified; N40.0 Benign prostatic hyperplasia without lower urinary tract symptoms; Z87.891 Personal history of nicotine dependence; Z95.0 Presence of cardiac pacemaker; Z95.2 Presence of prosthetic heart valve
CPT/HCPCS: 82947-QW; 96365; 97116-GP; 97161-GP; 97165-GO; 97530-GP; 97535-GO; G8978-GP-CJ; G8979-GP-CI; G8987-GO-CJ; G8988-GO-CI; J0456; J0696

== ENCOUNTER → 2017-11-23 | Outpatient (CLI) | payer OTHER | LOC: BHFA 09:15 | PROVIDERS: ATTEND Internal Medicine Cardiovascular Disease | DX: I35.9 Nonrheumatic aortic valve disorder, unspecified (principal); R07.9 Chest pain, unspecified ==

== ENCOUNTER 2018-05-26 12:55 | Emergency (ER) | payer OTHER ==
--- NOTE | 2018-05-26 12:58 | EDPHY ---
H & P Time Seen by Provider: 05/26/18 12:58 HPI/ROS: CHIEF COMPLAINT: Difficulty walking, and left elbow injury HISTORY OF PRESENT ILLNESS: History from patient and from [facility]. They were called to [facility] living as this patient had a mechanical fall at 7:00 a.m. And then was found by staff. The patient thought that his typical caregiver visit was going to happen at 8:00 a.m. So he did not call, but did not realize it was Sunday. He has a left elbow skin tear but was brought in for evaluation because he was unable to get up off the floor and walk. EMS noted his oxygen saturation on scene was 85%, he uses an oxygen concentrator and says that he uses oxygen only at night. Here he has no medical complaints. REVIEW OF SYSTEMS: Eye: no change in vision ENT: no sore throat Cardiac: no chest pain or syncope Pulmonary: Chronic cough thought due to 1 of his medications for over a month Abdomen: no vomiting, diarrhea, abdominal pain Musculoskeletal: no back pain or neck pain Skin: Left elbow abrasion Neuro: no headache Constitutional: no fever : no urinary symptoms A comprehensive 10 point review of systems is otherwise negative aside from elements mentioned in the history of present illness. PAST MEDICAL HISTORY: Includes aortic stenosis, Parkinson's, pacemaker. Hyperthyroid, BPH. On every other day Levaquin for the last month for recurrent UTIs. Social history: Assisted living at the [facility]; Here with 1 of his friends and caregivers. General Appearance: Alert and conversant, cooperative. Eyes: No scleral icterus. Pupils equal reactive extraocular motion intact. ENT, Mouth: Normal mucous membranes. Hearing aids, no external evidence of head trauma. Respiratory: Normal respiratory effort, breath sounds equal, lungs are clear to auscultation. Cardiovascular: Regular rate and rhythm. 3/6 systolic murmur. Gastrointestinal: Abdomen is soft and non tender. Neurological: Alert, face symmetric, normal motor and sensory in extremities. Skin: Skin tear x2 in the left elbow. Musculoskeletal: No midline spinal tenderness. No extremity bony tenderness. No hip pain with rotation or axial loading. Pelvis stable. No left upper extremity bony tenderness, full extension and flexion of the elbow. Psychiatric: Not agitated. Emergency Department course/MDM: Wound care, CBC chemistry and chest x-ray. Patient was able to walk with stable gait in safely in the emergency department , unassisted. He feels comfortable being discharged which I think is reasonable. Discussed with the on-call physician for his primary care practice. O2 sat 90% on room air at the time of discharge, he does not have any respiratory symptoms and speaks in full sentences, this is likely his baseline. Does not have left elbow bony tenderness or restriction in range of motion, I think fracture would be unlikely. Cervical spine cleared clinically. Does not have evidence of head injury on examination. Clearly mechanical and not syncopal. Smoking Status: Former smoker Constitutional: Initial Vital Signs Temperature (C) 35.6 C L 05/26/18 13:00 Heart Rate 74 05/26/18 13:00 Respiratory Rate 18 05/26/18 13:00 Blood Pressure 130/74 H 05/26/18 13:00 O2 Sat (%) 95 05/26/18 13:00 O2 Delivery Mode Room Air O2 (L/minute) 2 Allergies/Adverse Reactions: midazolam HCl [From Versed] Allergy (Intermediate, Verified 05/26/18 13:07) diazepam Allergy (Unknown, Verified 05/26/18 13:07) Other-Enter Comments Benzodiazepines Allergy (Verified 05/26/18 13:07) midazolam HCl Allergy (Unknown, Uncoded 07/24/17 16:41) Home Medications: Medication Instructions Recorded Levothyroxine [Synthroid 50 mcg 50 mcg PO DAILY06 12/09/13 (*)] [place]-3 Fatty Acids/Fish Oil 1 cap PO DAILY 05/07/15 [[place] 3 1,000 mg Softgel] Omeprazole Magnesium [Prilosec Otc] 20 mg PO DAILY 05/07/15 Aspirin [Aspirin 81mg (*)] 81 mg PO DAILY #100 tab 05/19/15 Carbidopa/Levodopa 25/100Mg 1 tab PO TID 08/27/16 [Sinemet 25/100 MG (*)] Valacyclovir HCl [Valtrex] 1,000 mg PO DAILY 08/27/16 Polyethylene Glycol 3350 [Miralax 17 gm PO DAILY PRN #0 pkt 08/30/16 17 gm (*)] Acetaminophen [Tylenol ES 500 mg 500 mg PO BID 07/21/17 (*)] Cholecalciferol Vit D3 [Vitamin D3 1,000 units PO DAILY 07/21/17 (*)] Docusate Sodium [Colace 100 MG (*)] 100 mg PO DAILY 07/21/17 Lisinopril [Zestril 20 mg (*)] 30 mg PO DAILY 07/21/17 Metoprolol Tartrate [Lopressor 25 25 mg PO DAILY 07/21/17 mg (*)] Oxybutynin Chloride [Ditropan] 5 mg PO BID 07/21/17 amLODIPine BESYLATE [Amlodipine 10 mg PO DAILY 07/21/17 Besylate] Irbesartan 05/26/18 Levaquin 05/26/18 Proscar 5 MG (*) 05/26/18 Spironolactone 05/26/18 Medical Decision Making - Diagnostics Imaging Results: Imaging Impressions Chest X-Ray 05/26/18 13:18 Impression: 1. No failure or effusion. 2. Minimal bibasilar atelectasis and airways disease. Imaging: I viewed and interpreted images myself Consult/Admit Bed Type: [place] [id number] - Data Points Laboratory Results: Laboratory Results 05/26/18 13:30 05/26/18 13:30 05/26/18 05/26/18 05/26/18 13:30 13:30 13:30 WBC 7.60 10^3/uL 10^3/uL Cancelled (3.80-9.50) RBC 3.43 10^6/uL L 10^6/uL Cancelled (4.40-6.38) Hgb 12.4 g/dL L g/dL Cancelled (13.7-17.5) Hct 36.3 % L % Cancelled (40.0-51.0) MCV 105.8 fL H fL Cancelled (81.5-99.8) MCH 36.2 pg H pg Cancelled (27.9-34.1) MCHC 34.2 g/dL g/dL Cancelled (32.4-36.7) RDW 18.6 % H % Cancelled (11.5-15.2) Plt Count 122 10^3/uL L 10^3/uL Cancelled (150-400) MPV 12.2 fL H fL Cancelled (8.7-11.7) Neut % (Auto) Not Reported Cancelled Lymph % (Auto) Not Reported Cancelled [place] % (Auto) Not Reported Cancelled Eos % (Auto) Not Reported Cancelled Baso % (Auto) Not Reported Cancelled Nucleat RBC Rel Count Not Reported Cancelled Absolute Neuts (auto) Not Reported Cancelled Absolute Lymphs (auto) Not Reported Cancelled Absolute Monos (auto) Not Reported Cancelled Absolute Eos (auto) Not Reported Cancelled Absolute Basos (auto) Not Reported Cancelled Absolute Nucleated RBC Not Reported Cancelled Immature Gran % Not Reported Cancelled Seg Neutrophils % 68.0 % % Cancelled Band Neutrophils % 5.0 % % Cancelled Lymphocytes % 14.0 % % Cancelled Monocytes % 10.0 % % Cancelled Eosinophils % 1.0 % % Cancelled Basophils % 0.0 % % Cancelled Metamyelocytes % 0.0 % % Cancelled Myelocytes % 2.0 % % Cancelled Promyelocytes % 0.0 % % Cancelled Blast Cells % 0.0 % % Cancelled Megakaryocytes % Cancelled Immature Gran # Not Reported Cancelled Absolute Seg Neuts 5.34 10^3/uL 10^3/uL Cancelled (1.70-6.50) Absolute Band Neuts 0.39 10^3/uL 10^3/uL Cancelled (0.00-0.70) Absolute Lymphocytes 1.10 10^3/uL 10^3/uL Cancelled (1.00-3.00) Absolute Monocytes 0.79 10^3/uL 10^3/uL Cancelled (0.30-0.80) Absolute Eosinophils 0.08 10^3/uL 10^3/uL Cancelled (0.03-0.40) Absolute Basophils 0.00 10^3/uL L 10^3/uL Cancelled (0.02-0.10) Absolute Metamyelocyte 0.00 10^3/mL 10^3/mL Cancelled (0.00-0.00) Absolute Myelocytes 0.16 10^3/mL H 10^3/mL Cancelled (0.00-0.00) Absolute Promyelocytes 0.00 10^3/uL 10^3/uL Cancelled (0.00-0.00) Absolute Plasma Cells 0.00 10^3/uL 10^3/uL Cancelled (0.00-0.00) Nucleated RBCs 0 /100 WBC /100 WBC Cancelled (0-0) Differential Comment Cancelled RBC/WBC/PLT Morphology Cancelled Hypersegmented Neuts Cancelled Atypical Lymphocytes Cancelled Absolute Blast Cells 0.00 10^3/uL 10^3/uL Cancelled (0.00-0.00) Plasma Cells % 0.0 % % Cancelled Smudge Cells Cancelled Toxic Granulation Cancelled Toxic Vacuolation Cancelled Dohle Bodies Cancelled Kyle Rods Cancelled Platelet Estimate DECREASED L Cancelled (ADEQ) Clumped Platelets Cancelled Large Platelets Cancelled Giant Platelets Cancelled Bizarre Platelets Cancelled Polychromasia 1+ H Cancelled Hypochromasia Cancelled Basophilic Stippling Cancelled Microcytic Cells Cancelled Spherocytes Cancelled Pappenheimer Bodies Cancelled Sickle Cells Cancelled Target Cells Cancelled Tear Drop Cells Cancelled Oval Macrocytes 1+ H Cancelled Stomatocytes Cancelled [place] Bodies Cancelled Echinocytes Cancelled Elliptocytes Cancelled Acanthocytes (Spur) Cancelled Rouleaux Cancelled Keratocytes Cancelled Schistocytes Cancelled Sodium 139 mEq/L mEq/L (135-145) Potassium 4.0 mEq/L mEq/L (3.3-5.0) Chloride 105 mEq/L mEq/L (97-110) Carbon Dioxide 27 mEq/l mEq/l (22-31) Anion Gap 7 mEq/L mEq/L (6-14) BUN 19 mg/dL mg/dL (7-23) Creatinine 0.9 mg/dL mg/dL (0.7-1.3) Estimated GFR > 60 Glucose 102 mg/dL H mg/dL (70-100) Calcium 9.4 mg/dL mg/dL (8.5-10.4) Creatine Kinase 139 IU/L IU/L (0-224) Cold Agglutinins Cancelled 05/26/18 13:30 WBC Cancelled RBC Cancelled Hgb Cancelled Hct Cancelled MCV Cancelled MCH Cancelled MCHC Cancelled RDW Cancelled Plt Count Cancelled MPV Cancelled Neut % (Auto) Cancelled Lymph % (Auto) Cancelled [place] % (Auto) Cancelled Eos % (Auto) Cancelled Baso % (Auto) Cancelled Nucleat RBC Rel Count Cancelled Absolute Neuts (auto) Cancelled Absolute Lymphs (auto) Cancelled Absolute Monos (auto) Cancelled Absolute Eos (auto) Cancelled Absolute Basos (auto) Cancelled Absolute Nucleated RBC Cancelled Immature Gran % Cancelled Seg Neutrophils % Cancelled Band Neutrophils % Cancelled Lymphocytes % Cancelled Monocytes % Cancelled Eosinophils % Cancelled Basophils % Cancelled Metamyelocytes % Cancelled Myelocytes % Cancelled Promyelocytes % Cancelled Blast Cells % Cancelled Megakaryocytes % Cancelled Immature Gran # Cancelled Absolute Seg Neuts Cancelled Absolute Band Neuts Cancelled Absolute Lymphocytes Cancelled Absolute Monocytes Cancelled Absolute Eosinophils Cancelled Absolute Basophils Cancelled Absolute Metamyelocyte Cancelled Absolute Myelocytes Cancelled Absolute Promyelocytes Cancelled Absolute Plasma Cells Cancelled Nucleated RBCs Cancelled Differential Comment Cancelled RBC/WBC/PLT Morphology Cancelled Hypersegmented Neuts Cancelled Atypical Lymphocytes Cancelled Absolute Blast Cells Cancelled Plasma Cells % Cancelled Smudge Cells Cancelled Toxic Granulation Cancelled Toxic Vacuolation Cancelled Dohle Bodies Cancelled Kyle Rods Cancelled Platelet Estimate Cancelled Clumped Platelets Cancelled Large Platelets Cancelled Giant Platelets Cancelled Bizarre Platelets Cancelled Polychromasia Cancelled Hypochromasia Cancelled Basophilic Stippling Cancelled Microcytic Cells Cancelled Spherocytes Cancelled Pappenheimer Bodies Cancelled Sickle Cells Cancelled Target Cells Cancelled Tear Drop Cells Cancelled Oval Macrocytes Cancelled Stomatocytes Cancelled [place] Bodies Cancelled Echinocytes Cancelled Elliptocytes Cancelled Acanthocytes (Spur) Cancelled Rouleaux Cancelled Keratocytes Cancelled Schistocytes Cancelled Sodium Potassium Chloride Carbon Dioxide Anion Gap BUN Creatinine Estimated GFR Glucose Calcium Creatine Kinase Cold Agglutinins Cancelled Medications Given: Discontinued Medications Diphtheria/Tetanus/Acell Pertussis (Boostrix) 0.5 ml IM .ONCE ONE Stop: 05/26/18 13:22 Last Admin: 05/26/18 13:43 Dose: 0.5 ml Departure - Departure Disposition: Home, Routine, Self-Care Clinical Impression: Abrasion of left elbow, initial encounter Condition: Good Instructions: Abrasion (ED), Skin Tear (ED) Referrals: Harsh Saunders MD [Primary Care Provider] - As per Instructions
[2018-05-26] MEDS ORDERED: TDAP ADULT 0.5 ML INJ (BOOSTRIX) IM ONE (13:21)
[2018-05-26 13:52] LABS: CREATINE KINASE 139 IU/L (0-224)
[2018-05-26 14:45] LABS: PLATELET COUNT 122 10^3/uL (150-400)
[2018-05-26 14:48] VITALS: BP 124/67
== END 2018-05-26 14:47 | disposition home or self-care (01) ==
LOC: EDUNIT#
DX: S50.312A Abrasion of left elbow, initial encounter (principal); W01.198A Fall on same level from slipping, tripping and stumbling with subsequent striking against other object, initial encounter; G20 Parkinson's disease; Y92.129 Unspecified place in nursing home as the place of occurrence of the external cause; Z23 Encounter for immunization; Z79.2 Long term (current) use of antibiotics; Z87.440 Personal history of urinary (tract) infections

== ENCOUNTER 2018-10-04 12:56 | Emergency (ER) | payer OTHER ==
[2018-10-04] MEDS ORDERED: LET GEL TOPICAL 1 EA SYR TP ONE (13:24)
--- NOTE | 2018-10-04 14:15 | EDPHY ---
H & P Time Seen by Provider: 10/04/18 13:20 HPI/ROS: CHIEF COMPLAINT: Fall and facial laceration History by patient and power of real estate attorney HISTORY OF PRESENT ILLNESS: 88-year-old man with multiple medical problems presents after mechanical fall at home in his assisted living facility. Patient states he is trying to get out of his chair did not use the lift assist device and as he was standing lost balance and fell on his face. Attendant from facility found him. Patient states he did not lose consciousness or faint. He was able to get up on his own. He is currently without complaints. He denies headache, neck pain, chest pain, difficulty breathing, abdominal pain , back pain or limb arm pain. REVIEW OF SYSTEMS: As in HPI, but limited due to the patient's underlying memory impairment Smoking Status: Former smoker Physical Exam: General Appearance: Alert, hard of hearing, comfortable appearing Head: normocephalic, positive 2 cm v-shaped skin tear over right parietal area at hairline Eyes: Extraocular movements intact, right surgical pupil Mouth: Mucous membranes moist. Positive 2 cm ragged laceration to lower lip within vermilion borders into deep tissue, positive 2 cm laceration on the chin just below vermilion border, positive ecchymoses on mucosal side of lower lip and gums, no loose teeth, bite intact, tongue depressor test negative bilaterally, fully opens and closes trauma with normal occlusion Neck: No bony tenderness, full range of motion Respiratory: Normal, effort, lungs are clear to auscultation. No wheezes, rales or rhonchi. Cardiovascular: Regular rate and rhythm. S1, S2, positive IV/ murmur Gastrointestinal: Abdomen is soft and nontender, no masses, bowel sounds normal. Back: No CVA tenderness, no bony tenderness Neurological: Awake, alert and oriented x 3, cranial nerves 2-12 intact, no pronator drift, strength 5 in 5 and equal bilaterally lower extremities Skin: Warm and dry, no rashes. With lesions as Described Musculoskeletal: No deformities or tenderness. Positive irregular, 4 cm skin tear left forearm on the ulnar surface, radial pulse 2 +and equal bilaterally Extremities: full range of motion, no tenderness or deformity Constitutional: Initial Vital Signs Temperature (C) 36.5 C 10/04/18 13:10 Heart Rate 64 10/04/18 13:10 Respiratory Rate 18 10/04/18 13:10 Blood Pressure 133/65 H 10/04/18 13:10 O2 Sat (%) 86 L 10/04/18 13:10 O2 Delivery Mode Room Air O2 (L/minute) 2 Allergies/Adverse Reactions: midazolam HCl [From Versed] Allergy (Intermediate, Verified 10/04/18 13:45) diazepam Allergy (Unknown, Verified 10/04/18 13:45) Other-Enter Comments Benzodiazepines Allergy (Verified 10/04/18 13:45) midazolam HCl Allergy (Unknown, Uncoded 10/04/18 13:45) Home Medications: Medication Instructions Recorded Levothyroxine [Synthroid 50 mcg 50 mcg PO DAILY06 12/09/13 (*)] [place]-3 Fatty Acids/Fish Oil 1 cap PO DAILY 05/07/15 [[place] 3 1,000 mg Softgel] Omeprazole Magnesium [Prilosec Otc] 20 mg PO DAILY 05/07/15 Aspirin [Aspirin 81mg (*)] 81 mg PO DAILY #100 tab 05/19/15 Carbidopa/Levodopa 25/100Mg 1 tab PO TID 08/27/16 [Sinemet 25/100 MG (*)] Valacyclovir HCl [Valtrex] 1,000 mg PO DAILY 08/27/16 Polyethylene Glycol 3350 [Miralax 17 gm PO DAILY PRN #0 pkt 08/30/16 17 gm (*)] Acetaminophen [Tylenol ES 500 mg 500 mg PO BID 07/21/17 (*)] Cholecalciferol Vit D3 [Vitamin D3 1,000 units PO DAILY 07/21/17 (*)] Docusate Sodium [Colace 100 MG (*)] 100 mg PO DAILY 07/21/17 Lisinopril [Zestril 20 mg (*)] 30 mg PO DAILY 07/21/17 Metoprolol Tartrate [Lopressor 25 25 mg PO DAILY 07/21/17 mg (*)] Oxybutynin Chloride [Ditropan] 5 mg PO BID 07/21/17 amLODIPine BESYLATE [Amlodipine 10 mg PO DAILY 07/21/17 Besylate] Irbesartan 05/26/18 Levaquin 05/26/18 Proscar 5 MG (*) 05/26/18 Spironolactone 05/26/18 Penicillin V Potassium [Pen Vk 500 mg PO BID 10 Days tab 10/04/18 500mg (*)] MDM/Departure - MDM Procedures: Procedure: Laceration repair. Verbal consent was obtained from the patient. The 2 cm laceration on the lower lip was anesthetized in the usual fashion. The wound was irrigated, draped and explored to its base with a gloved finger and cotton tip applicator and extended into the deep tissues.. No tendon injury or foreign body was identified. The wound was repaired with 5 0 Vicryl in the deep tissue and 5-0 rapidly absorbing Vicryl x5 on lip tissue. The wound repair was layered and without complication. The procedure was performed by myself. Procedure: Laceration repair. Verbal consent was obtained from the patient. The 2 cm laceration on the chin was anesthetized in the usual fashion. The wound was irrigated, draped and explored to its base with a gloved finger. There were no deep structures involved. No tendon injury was identified. The wound was repaired with 5 0 Vicryl in the deep layers and 5 0 Prolene x6 on the skin layer. The wound repair was layers. There were no complications. The procedure was performed by myself. ED Course/Re-evaluation: Elderly man presents after mechanical fall. There is no evidence of significant trauma injury. His wounds were cleaned, dressed repaired. Because the lip and chin lacerations were likely through and through he was started on oral penicillin. He here with his neighbor and power real estate attorney who feels he is at baseline. He lives in assisted care facility and has 7 days a week attendant. He is discharged home with his per turning. - Depart Disposition: Home, Routine, Self-Care Clinical Impression: Complex laceration of face Qualifiers: Encounter type: initial encounter Qualified Code(s): S01.91XA - Laceration without foreign body of unspecified part of head, initial encounter Skin tear of left forearm without complication Qualifiers: Encounter type: initial encounter Qualified Code(s): S51.812A - Laceration without foreign body of left forearm, initial encounter Superficial laceration of scalp Qualifiers: Encounter type: initial encounter Qualified Code(s): S01.01XA - Laceration without foreign body of scalp, initial encounter Contusion of face Qualifiers: Encounter type: initial encounter Qualified Code(s): S00.83XA - Contusion of other part of head, initial encounter Condition: Fair Instructions: Skin Tear (ED), Care For Your Stitches (ED) Additional Instructions: You were seen by Dr. Nani Lockwood today. You have a skin tear on her left arm. Keep the Mepilex dressing on her primary care physician Dr. Fraga next week. He has a skin tear on her right forehead. Keep the dressing on until you see primary care physician Dr. Fraga next week. We have closed your lip laceration with absorbable sutures. You don't need to do anything. Avoid acidic foods or things that irritate your lip. After 24 hr you may wash the wound regularly with soap and water, cover it with ointment such as Aquaphor and a bandage until the sutures come out. Do not submerge the wound such as in a swimming pool. Please have the sutures removed in 5 days. Take antibiotics as prescribed. Watch for signs and symptoms of infection including but not limited to pus from the wound, increased pain or redness, unexplained fever. Return for any worsening or new concerns. Return for any worsening or new concerns. Prescriptions: Penicillin V Potassium [Pen Vk 500mg (*)] 500 mg PO BID 10 Days tab Referrals: Harsh Saunders MD [Primary Care Provider] - As per Instructions
[2018-10-04 17:02] VITALS: BP 134/68
== END 2018-10-04 16:56 | disposition home or self-care (01) ==
LOC: CED 12:56
PROC: 0HQ1XZZ Repair Face Skin, External Approach (ICD-10-PCS; principal; 2018-10-04)
PROC: 0CQ1XZZ Repair Lower Lip, External Approach (ICD-10-PCS; principal; 2018-10-04)
DX: S01.511A Laceration without foreign body of lip, initial encounter (principal); S01.01XA Laceration without foreign body of scalp, initial encounter; S51.812A Laceration without foreign body of left forearm, initial encounter; W07.XXXA Fall from chair, initial encounter; Y92.129 Unspecified place in nursing home as the place of occurrence of the external cause
CPT/HCPCS: 99283-ER

== ENCOUNTER 2018-10-26 11:18 | Inpatient (IN) | payer OTHER ==
--- NOTE | 2018-10-26 12:05 | EDPHY ---
H & P Stated Complaint: Per family-disoriented and "acting a little strange" Time Seen by Provider: 10/26/18 12:05 - Personal History Current Tetanus Diphtheria and Acellular Pertussis (TDAP): Yes Tetanus Vaccine Date: WITHIN 10 YRS - Medical/Surgical History Hx Asthma: No Hx Chronic Respiratory Disease: Yes Hx Diabetes: No Hx Cardiac Disease: Yes Hx Renal Disease: No Hx Cirrhosis: No Hx Alcoholism: No Hx HIV/AIDS: No Hx Splenectomy or Spleen Trauma: No Other PMH: aortic stenosis, hypertension, pacemaker, parkinsons, hyperthyroid, over active bladder, bph - Social History Smoking Status: Former smoker Constitutional: Initial Vital Signs Temperature (C) 36.7 C 10/26/18 11:29 Heart Rate 87 10/26/18 11:29 Respiratory Rate 18 10/26/18 11:29 Blood Pressure 109/71 10/26/18 11:29 O2 Sat (%) 78 L 10/26/18 11:29 O2 Delivery Mode Oxymask O2 (L/minute) 5 Allergies/Adverse Reactions: midazolam HCl [From Versed] Allergy (Intermediate, Verified 10/26/18 11:29) diazepam Allergy (Unknown, Verified 10/26/18 11:29) Other-Enter Comments Benzodiazepines Allergy (Verified 10/26/18 11:29) midazolam HCl Allergy (Unknown, Uncoded 10/04/18 13:45) Home Medications: Medication Instructions Recorded Levothyroxine [Synthroid 50 mcg 50 mcg PO DAILY 12/09/13 (*)] Omeprazole Magnesium [Prilosec Otc] 20 mg PO HS 05/07/15 Valacyclovir HCl [Valtrex] 1,000 mg PO HS 08/27/16 Polyethylene Glycol 3350 [Miralax 17 gm PO DAILY PRN #0 pkt 08/30/16 17 gm (*)] Cholecalciferol Vit D3 [Vitamin D3 1,000 units PO DAILY@1200 07/21/17 (*)] Oxybutynin Chloride [Ditropan] 5 mg PO BID 07/21/17 Finasteride [Proscar 5 MG (*)] 5 mg PO DAILY 05/26/18 Irbesartan [Avapro 150 mg (*)] 150 mg PO DAILY@1200 05/26/18 Spironolactone [Aldactone 25 MG 25 mg PO DAILY 05/26/18 (*)] Aspirin [Aspirin 81mg (*)] 81 mg PO DAILY@1800 10/26/18 Carbidopa/Levo Cr 25/100Mg 2 tab PO DAILY 10/26/18 [Sinemet CR 25/100 MG (*)] Escitalopram Oxalate [Lexapro] 10 mg PO DAILY 10/26/18 Herbals/Supplements -Info Only 1 ea PO DAILY 10/26/18 Metoprolol Succinate Xr [Toprol Xl 25 mg PO DAILY 10/26/18 25 mg (*)] [place]-3 Fatty Acids [Fish Oil 1000 1,000 mg PO DAILY@1200 10/26/18 mg (*)] amLODIPine BESYLATE [Norvasc 5 mg 5 mg PO DAILY 10/26/18 (*)] Medical Decision Making - Diagnostics Imaging Results: Imaging Impressions Chest X-Ray 10/26/18 11:45 Impression: Probable retrocardiac left lower lobe pneumonia.. Imaging: Discussed imaging studies w/ scallop binder Radiologist, I viewed and interpreted images myself ED Course/Re-evaluation: CHIEF COMPLAINT: AMS, possible UTI HISTORY OF PRESENT ILLNESS: The patient is an 88 y/o male with a history of Parkinson's, a pacemaker, aortic stenosis, and a chronic cough arriving for altered mental status. The patient lives independently at [place] and has a home nurse. Several days ago his daughter became concerned that the patient have a UTI as he felt mildly febrile. Today the patient was still in bed at 10:30, when the home nurse arrived at the patient's house, which is abnormal. The patient was disoriented and felt febrile still. Due to these symptoms EMS was called and the patient was brought to this hospital. Currently the patient thinks he is coughing more than normal, although his daughter reports that the patient has a chronic cough. No headache, body aches, lightheadedness, chest pain, heart palpitations , shortness of breath, abdominal pain, bowel complaints, numbness, paresthesias. REVIEW OF SYSTEMS: A comprehensive 10 system review of systems is otherwise negative aside from elements mentioned in the history of present illness and medical decision making. PHYSICAL EXAM: HR, BP, O2 Sat, RR. Temp noted General Appearance: Alert, well hydrated, and non-toxic appearing. Head: Atraumatic without scalp tenderness or obvious injury Eyes: Pupils equal, round, reactive to light and accommodation, EOMI, no trauma , no injection. Ears: Clear bilaterally, no perforation, normal landmarks Nose: Atraumatic, no rhinorrhea, clear. Throat: There is no erythema or exudates, no lesions, normal tonsils, mucus membranes moist. Neck: Supple, 2+ carotid upstroke, nontender, no lymphadenopathy. Respiratory: Bilateral scattered rales. No retractions, no distress, no wheezes , and no accessory muscle use. Cardiovascular: Aortic murmur, mildly tachycardic. No rubs, or gallops. Bilateral carotid, radial, dorsalis pedis, and posterior tibial pulses intact. Good capillary refill all extremities. Gastrointestinal: Abdomen is soft, nontender, non-distended, no masses, no rebound, no guarding, no peritoneal signs. Musculoskeletal: Normal active ROM of all extremities, atraumatic. Neurological: Alert and interactive. The patient has normal DTRs and non- focal cranial nerves, motor, sensory, and cerebellar exam. Skin: No rashes, good turgor, no nodules on palpation. Past medical history: Aortic stenosis, hypertension,Parkinson's, hyperthyroid, over active bladder, BPH Past surgical history: Pacemaker Family history: Denies Social history: Daughter, lives in independent living at [place], retired DIAGNOSTICS/PROCEDURES/CRITICAL CARE TIME: Chest x-ray: Posterior pneumonia. DIFFERENTIAL DIAGNOSIS: The differential diagnosis for the patient's altered mental status included but was not limited to hypoglycemia, infectious process, electrolyte abnormality, head injury, neurologic process, anemia, cardiac process, and intoxicants. MEDICAL DECISION MAKING: The patient is an 88 y/o male with a history of Parkinson's, a pacemaker, aortic stenosis, and a chronic cough arriving for altered mental status. Several days ago his daughter became concerned that the patient have a UTI as he felt mildly febrile. Today the patient was still in bed at 10:30, when the home nurse arrived at the patient's house, which is abnormal. The patient was disoriented and felt febrile still. Currently the patient thinks he is coughing more than normal, although his daughter reports that the patient has a chronic cough. On exam the patient appears slightly altered, as bilateral scattered rales, and has a cough. Patient is not febrile and is mildly tachycardic. Patient is requesting to have a Kang catheter placed to provide a urine sample. Labs and chest x-ray ordered. 1244: I spoke with Dr. Obregon, radiologist, who reports that the patient has a posterior pneumonia. 500mg IV Azithromycin and 1gm IV Ceftriaxone administered. Additional labs still pending. 1330: I reviewed patient's labs which reveal a white count of 21,000. His urine is unremarkable. Patient is not in septic shock. 1333: I consulted with Dr. Berman, physician with Dr. Veras's service, regarding this patient. They accept admission of this patient. - Data Points Laboratory Results: Laboratory Results 10/26/18 11:21 10/26/18 11:21 10/26/18 10/26/18 10/26/18 12:40 11:21 11:21 WBC 21.12 10^3/uL H 10^3/uL (3.80-9.50) RBC 3.24 10^6/uL L 10^6/uL (4.40-6.38) Hgb 11.9 g/dL L g/dL (13.7-17.5) Hct 35.5 % L % (40.0-51.0) MCV 109.6 fL H fL (81.5-99.8) MCH 36.7 pg H pg (27.9-34.1) MCHC 33.5 g/dL g/dL (32.4-36.7) RDW 16.4 % H % (11.5-15.2) Plt Count 131 10^3/uL L 10^3/uL (150-400) MPV 11.4 fL fL (8.7-11.7) Neut % (Auto) Not Reported Lymph % (Auto) Not Reported Foard % (Auto) Not Reported Eos % (Auto) Not Reported Baso % (Auto) Not Reported Nucleat RBC Rel Count Not Reported Absolute Neuts (auto) Not Reported Absolute Lymphs (auto) Not Reported Absolute Monos (auto) Not Reported Absolute Eos (auto) Not Reported Absolute Basos (auto) Not Reported Absolute Nucleated RBC Not Reported Immature Gran % Not Reported Seg Neutrophils % 85.0 % % Band Neutrophils % 7.0 % % Lymphocytes % 4.0 % % Monocytes % 4.0 % % Eosinophils % 0.0 % % Basophils % 0.0 % % Metamyelocytes % 0.0 % % Myelocytes % 0.0 % % Promyelocytes % 0.0 % % Blast Cells % 0.0 % % Immature Gran # Not Reported Absolute Seg Neuts 17.95 10^3/uL H 10^3/uL (1.70-6.50) Absolute Band Neuts 1.48 10^3/uL H 10^3/uL (0.00-0.70) Absolute Lymphocytes 0.84 10^3/uL L 10^3/uL (1.00-3.00) Absolute Monocytes 0.84 10^3/uL H 10^3/uL (0.30-0.80) Absolute Eosinophils 0.00 10^3/uL L 10^3/uL (0.03-0.40) Absolute Basophils 0.00 10^3/uL L 10^3/uL (0.02-0.10) Absolute Metamyelocyte 0.00 10^3/mL 10^3/mL (0.00-0.00) Absolute Myelocytes 0.00 10^3/mL 10^3/mL (0.00-0.00) Absolute Promyelocytes 0.00 10^3/uL 10^3/uL (0.00-0.00) Absolute Plasma Cells 0.00 10^3/uL 10^3/uL (0.00-0.00) Nucleated RBCs 0 /100 WBC /100 WBC (0-0) Absolute Blast Cells 0.00 10^3/uL 10^3/uL (0.00-0.00) Plasma Cells % 0.0 % % Platelet Estimate ADEQUATE (ADEQ) Hypochromasia 1+ H Oval Macrocytes 3+ H Sodium 136 mEq/L mEq/L (135-145) Potassium 4.3 mEq/L mEq/L (3.5-5.2) Chloride 103 mEq/L mEq/L (97-110) Carbon Dioxide 25 mEq/l mEq/l (22-31) Anion Gap 8 mEq/L mEq/L (6-14) BUN 24 mg/dL H mg/dL (7-23) Creatinine 1.2 mg/dL mg/dL (0.7-1.3) Estimated GFR 57 Glucose 132 mg/dL H mg/dL (70-100) Calcium 8.8 mg/dL mg/dL (8.5-10.4) Urine Color YELLOW Urine Appearance CLEAR Urine pH 5.0 (5.0-7.5) Ur Specific [place] 1.017 (1.002-1.030) Urine Protein NEGATIVE (NEGATIVE) Urine Ketones NEGATIVE (NEGATIVE) Urine Blood NEGATIVE (NEGATIVE) Urine Nitrate NEGATIVE (NEGATIVE) Urine Bilirubin NEGATIVE (NEGATIVE) Urine Urobilinogen NEGATIVE EU EU (0.2-1.0) Ur Leukocyte Esterase NEGATIVE (NEGATIVE) Urine RBC NONE SEEN /hpf /hpf (0-3) Urine WBC 1-3 /hpf /hpf (0-3) Ur Epithelial Cells NONE SEEN /lpf /lpf (NONE-1+) Urine Mucus TRACE /lpf /lpf (NONE-1+) Urine Glucose NEGATIVE (NEGATIVE) Medications Given: Discontinued Medications Azithromycin 500 mg/ Sodium (Chloride) 255 mls @ 255 mls/hr IV EDNOW ONE PRN Reason: Protocol Stop: 10/26/18 14:27 Last Admin: 10/26/18 14:23 Dose: 255 mls Ceftriaxone Sodium/Dextrose (Rocephin 1 Gm (Premix)) 50 mls @ 100 mls/hr IV EDNOW ONE PRN Reason: Protocol Stop: 10/26/18 13:57 Last Admin: 10/26/18 13:37 Dose: 50 mls Lidocaine (Uroject Lidocaine 2% Jelly) 20 ml UR EDNOW ONE Stop: 10/26/18 12:41 Last Admin: 10/26/18 12:41 Dose: 20 ml Departure - Departure Disposition: [facility] Inpatient Acute Clinical Impression: posterior pneumonia, Hypoxemia Elevated WBC count Qualifiers: Leukocytosis type: other Qualified Code(s): D72.828 - Other elevated white blood cell count Condition: Fair Report Scribed for: Barrett Parry Report Scribed by: Rosa Elena Jimenez Date of Report: 10/26/18 Time of Report: 12:12
[2018-10-26] MEDS ORDERED: LIDOCAINE 2% JELLY 20 ML (UROJECT) ONE (12:30)
[2018-10-26] MEDS ORDERED: LIDOCAINE 2% JELLY 20 ML (UROJECT) UR ONE (12:40)
[2018-10-26 12:58] LABS: PLATELET COUNT 131 10^3/uL (150-400)
[2018-10-26] MEDS ORDERED: AZITHROMYCIN IV 500 MG in NS 250 ML IV ONE (13:28)
[2018-10-26] MEDS ORDERED: MAGNESIUM HYDROXIDE 30 ML UDCUP PO PRN (15:15)
[2018-10-26] MEDS ORDERED: LACTULOSE 20 GM/30 ML UDCUP PO PRN (15:15)
[2018-10-26] MEDS ORDERED: D5W 1/2 NS 1,000 ML IV SCH (15:15)
[2018-10-26] MEDS ORDERED: ACETAMINOPHEN 325 MG TAB PO PRN (15:15)
[2018-10-26] MEDS ORDERED: BISACODYL 10 MG SUPP PR PRN (15:15)
[2018-10-26] MEDS ORDERED: ONDANSETRON DISINTEGRATING 4 MG TAB PO PRN (15:15)
[2018-10-26] MEDS ORDERED: ONDANSETRON 4 MG/2 ML VIAL IVP PRN (15:15)
[2018-10-26] MEDS ORDERED: POLYETHYLENE GLYCOL 3350 17 GM PKT PO PRN (15:21)
--- NOTE | 2018-10-26 15:30 | ASMTCMCOM ---
CM Note CM Note Notes: Pt has been admitted with AMS, possible UTI. He lives at [facility]. Pt has no family local, there is a grandson in the [place] area. Charlotte Burnetth [phone] is pt's MPOA. She was the pt's former grommet worker and became MPOA after his . She has been asked to bring in the paperwork. Pt's d/c needs not known at this time. CM will follow. D/C plan: TBD Date Signed: 10/26/2018 03:29 PM Electronically Signed By:BIPIN Pennington
[2018-10-26] MEDS: IPRATROPIUM/ALBUTEROL 3 ML DEYVIAL IH SCH ×2 (16:08→21:08)
--- NOTE | 2018-10-26 16:38 | SOAPPROG ---
SOAP Progress Note Assessment/Plan: Assessment: Pleasant hard of hearing 88 yo male w/ known Parkinson's and chronic cough who lives at the [facility] who was not acting his usual way this week and this morning slept in late, was a bit confused and mildly febrile and coughing more than usual cough so was BIBA to ER and found to have a LLL PNA w/ elev WBC w/ L shift of 21. Decision made to admit. -LLL PNA - was given ceftriaxone and azithromycin in ER, of note has been on levaquin as outpt for recurrent uti's recently, cont on oxygen (wears oxygen at home but is requiring increased liters to keep sats over 90), nebs while awake, will give gentle fluids x 1 l at 75 cc/hr, bcx not done in ER prior to abx but will draw now given age, pna, elev wbc. -Parkinson's - cont on Sinemet bid -htn - cont irbesartan, amlodipine, spironolactone, metoprolol - follow bp, currently ok but if low will adjust bp meds -known stable cad - cont asa, supplements,. -bladder and prostate issues/ incontinence - cont oxybutynin, proscar -Gerd - PPI -DVT proph - lovenox -Dispo - suspect >2MN given pna, age, h/o parkinson's , mmp Plan: 10/26/18 16:30 Subjective: denies any discomfort, maybe more coughing Objective: Vital Signs Temp Pulse Resp BP Pulse Ox 36.6 C 68 18 109/57 L 93 10/26/18 15:15 10/26/18 16:00 10/26/18 16:00 10/26/18 15:15 10/26/18 16:00 10/25/18 10/26/18 10/27/18 05:59 05:59 05:59 Intake Total 70 Output Total 150 Balance -80 GEN: alert but hard of hearing, pleasant Heent: nasal cannula, sk's on skin, eomi Neck: soft/supple Chest: coarse bs, rhonchi cleared w/ cough CV: rrr 3/6 ANDREAS (not new, ) ABD: soft nt nd nl bs Ext: trace edema ble to ant gaspar Neuro: alert, oriented appropriate pleasant Psych: good eye contact, bright spirits ICD10 Worksheet Patient Problems: Problems Problem Status Onset Elevated WBC count Acute Hypoxemia Acute chronic disease mgmt/transitional care Acute COPD (chronic obstructive pulmonary disease) Chronic GERD (gastroesophageal reflux disease) Chronic Hypothyroid Chronic Nocturnal hypoxia Chronic Hypertension Chronic Severe calcific aortic valve stenosis Chronic BPH (benign prostatic hyperplasia) Chronic S/P aortic valve replacement with bioprosthetic valve Acute Postoperative complete heart block Acute S/P placement of cardiac pacemaker Acute Physical deconditioning Chronic Dislocation of right ring finger Acute Closed right hip fracture Acute Pneumonia Acute
--- NOTE | 2018-10-26 17:48 | GHP ---
[f rep st] HISTORY AND PHYSICAL DATE OF ADMISSION: 10/26/2018 HISTORY OF PRESENT ILLNESS: Patient is a very pleasant 88-year-old male with a history of hearing lo ss and Parkinson's, hypertension, COPD, GERD, hypoxia on chronic oxygen therapy, who was in his usual state of health, living at [facility] until the last couple of days where he seemed to have develop ed a slightly different cough from his usual chronic cough and seemed a little less sharp on mentatio n. Then this morning, was found to have been sleeping in bed until 10:30, which is unusual for him, and he had a small fever. Did not seem himself, and an ambulance was called, and he was taken to the emergency room for evaluation. In the ER, he was found to have an elevated white count of 21 with a left shift and a chest x-ray suspicious for left lower lobe pneumonia, read as probable retrocardiac left lower lobe pneumonia. He was given ceftriaxone and azithromycin in the ER, and we were called to admit the patient. PAST MEDICAL HISTORY: Significant for BPH, COPD, GERD, hypertension, Parkinson's, chronic hypoxia, s table coronary artery disease. SURGICAL HISTORY: Includes a vasectomy in 1972. FAMILY HISTORY: His mom at 80. Father at 79 from CHF. SOCIAL HISTORY: He is a nonsmoker and but did smoke 30 or 40 years ago. Rare alcohol. ALLERGIES: Include Versed and Valium. Valium causes urinary retention. REVIEW OF SYSTEMS: GENERAL: The patient was in his usual state of health until the last couple days as discussed in HPI at [facility] with mild fever, mild altered mental status, and increased cough. EN T: Negative for ear pain, nosebleeds, sore throat. RESPIRATORY: Has a chronic cough but somewhat c hanged in quality currently. CARDIOVASCULAR: No chest pain or palpitations. Denial of irregular he artbeats. GI: Has a history of GERD but no acute abdominal pain, nausea, vomiting, or change in bow els. : He has some chronic issues with BPH and urinary incontinence, both from enlarged prostate and Parkinson's. MUSCULOSKELETAL: Denies any acute joint changes, aches or pains. SKIN: He has morel d a laceration on his chin and lower lip from a fall last month, but currently no rashes, hives, itch es, or concerns. NEUROLOGIC: Denies any current falls or fainting; however, there was some concern of slightly altered mental status . PSYCHIATRIC: No acute problematic mood changes or con cerns. PHYSICAL EXAM: VITAL SIGNS: Blood pressure 109/57, heart rate 77, and saturating 91% on 5 L. GENER AL: A very pleasant male, hard of hearing, oriented with good eye contact. HEENT: EOMI. Wearing n tasha cannula. Has some SKs evident on face and neck. NECK: Soft and supple. CHEST: Coarse breath sounds, scattered rhonchi that clear somewhat with cough. CARDIOVASCULAR: Regular rate and rhythm with a prominent 2 to 3 out of 6 systolic ejection murmur consistent with aortic stenosis. ABDOMEN: Soft, nontender, nondistended. Normal bowel sounds. No hepatosplenomegaly appreciated. EXTREMITIE S: Trace edema bilateral lower extremities anterior gaspar. NEUROLOGIC: Alert and oriented, pleasant . PSYCHIATRIC: Good eye contact, bright spirit. ASSESSMENT AND PLAN: 1. An 88-year-old white male with known Parkinson's, history of chronic cough and COPD, who presente d with mildly altered mental status changes, some increased somnolence, mild fever, found to have juancarlos vated white count and chest x-ray with left lower lobe pneumonia. Patient will be admitted. We will draw blood cultures even though he has already received ceftriaxone and azithromycin given his age a nd comorbidities, and he has had recent UTIs as an outpatient treated with Levaquin, and want to make sure he does not have bacteremia. We will offer nebulizer treatments while awake, titrate oxygen sa turation between 90 and 93, give 1 L of gentle fluids, and continue to follow. 2. Parkinson's. Will continue on Sinemet twice daily. 3. Hypertension. Continue on his usual outpatient angiotensin receptor rylie, amlodipine, spirono lactone, and metoprolol. We will follow his blood pressures as he is ill and may run lower blood pre ssures and may be some of these medications held. 4. Known BPH. We will continue his Proscar, and incontinence issues likely secondary to the Gu[place]upe on's. We will continue on oxybutynin. 5. History of gastroesophageal reflux disease. Continue on proton pump inhibitor. 6. Deep venous thrombosis prophylaxis. Will place on Lovenox. 7. Disposition. Expect the patient will require greater than 2 midnights given his age, pneumonia, and comorbidities. /[id number]/MODL
[2018-10-26] MEDS: ASPIRIN 81 MG CHEWABLE TAB PO SCH (17:50)
[2018-10-26] MEDS: OXYBUTYNIN CHLORIDE 5 MG TAB PO SCH (20:55)
[2018-10-26] MEDS: valACYclovir 500 MG TAB PO SCH (20:55)
[2018-10-26] MEDS: SENNOSIDES/DOCUSATE SODIUM TAB PO SCH (20:55)
[2018-10-26] MEDS: PANTOPRAZOLE SODIUM 40 MG TAB PO SCH (20:56)
[2018-10-27] MEDS: IPRATROPIUM/ALBUTEROL 3 ML DEYVIAL IH SCH ×4 (05:13→21:05)
[2018-10-27 05:31] LABS: PLATELET COUNT 108 10^3/uL (150-400)
[2018-10-27] MEDS: ENOXAPARIN 30 MG/0.3 ML SYR SC SCH (08:14)
[2018-10-27] MEDS: SPIRONOLACTONE 25 MG TAB PO SCH (08:14)
[2018-10-27] MEDS: LEVOTHYROXINE 50 MCG TAB PO SCH (08:14)
[2018-10-27] MEDS: CARBIDOPA/LEVO CR 25 MG/100 MG TAB PO SCH (08:14)
[2018-10-27] MEDS: FINASTERIDE 5 MG TAB PO SCH (08:14)
[2018-10-27] MEDS: ESCITALOPRAM OXALATE 10 MG TAB PO SCH (08:15)
[2018-10-27] MEDS: OXYBUTYNIN CHLORIDE 5 MG TAB PO SCH ×2 (08:15→20:01)
[2018-10-27] MEDS: amLODIPine BESYLATE 5 MG TAB PO SCH (08:15)
[2018-10-27] MEDS: METOPROLOL SUCCINATE XR 25 MG TAB PO SCH (08:15)
[2018-10-27] MEDS: SENNOSIDES/DOCUSATE SODIUM TAB PO SCH ×2 (08:16→20:01)
--- NOTE | 2018-10-27 10:29 | SOAPPROG ---
SOAP Progress Note Assessment/Plan: Assessment: Pneumonia iimproving. WBC improved. Still needing oxygen. Weaker than baseline. Parkinsons, Aortic valve replacement. Plan: Continue with antibiotics. Ambulate. 10/27/18 10:27 Subjective: Feeling some better. Cough is improved. No chest pain. Appetite is OK. Objective: Vital Signs Temp Pulse Resp BP Pulse Ox 97.8 F 73 18 127/56 H 91 L 10/27/18 07:39 10/27/18 07:39 10/27/18 07:39 10/27/18 07:39 10/27/18 07:39 Laboratory Results 10/27/18 04:17 10/27/18 04:17 10/26/18 10/27/18 10/28/18 05:59 05:59 05:59 Intake Total 850 Output Total 1050 Balance -200 Lungs with bibasalar rales R>L. COR RRR. 3/6 Systolic aortic murmur, unchanged from baseline. Alert and appropriate. ICD10 Worksheet Patient Problems: Problems Problem Status Onset Elevated WBC count Acute Hypoxemia Acute Closed right hip fracture Acute Dislocation of right ring finger Acute Pneumonia Acute Postoperative complete heart block Acute S/P aortic valve replacement with bioprosthetic valve Acute S/P placement of cardiac pacemaker Acute chronic disease mgmt/transitional care Acute BPH (benign prostatic hyperplasia) Chronic COPD (chronic obstructive pulmonary disease) Chronic GERD (gastroesophageal reflux disease) Chronic Hypertension Chronic Hypothyroid Chronic Nocturnal hypoxia Chronic Physical deconditioning Chronic Severe calcific aortic valve stenosis Chronic
--- NOTE | 2018-10-27 12:02 | PDMN ---
Medical Necessity [place] [facility] [place]neum[place], A-2 days: 88 yo w/ AMS, cough, fever. Eval reveals LLL pneumonia. Pt is hypoxic 78% RA requiring 5L O2 to maintain sats>90% Nebs and IV antibx started. BC pending. Expect pt will require >2MN given age, pneumonia and comorbidities. Hx Parkinson's, COPD, HTN, chronic hypoxia, CAD, BPH, GERD
[2018-10-27] MEDS: OMEGA-3 FATTY ACIDS 1,000 MG CAP PO SCH (12:43)
[2018-10-27] MEDS: CHOLECALCIFEROL VIT D3 1,000 UNITS TAB PO SCH (12:43)
[2018-10-27] MEDS: IRBESARTAN 150 MG TAB PO SCH (12:43)
[2018-10-27] MEDS: ASPIRIN 81 MG CHEWABLE TAB PO SCH (17:57)
[2018-10-27] MEDS: PANTOPRAZOLE SODIUM 40 MG TAB PO SCH (20:01)
[2018-10-27] MEDS: valACYclovir 500 MG TAB PO SCH (20:01)
[2018-10-28] MEDS: IPRATROPIUM/ALBUTEROL 3 ML DEYVIAL IH SCH ×4 (06:34→20:44)
[2018-10-28] MEDS: METOPROLOL SUCCINATE XR 25 MG TAB PO SCH (09:42)
[2018-10-28] MEDS: CARBIDOPA/LEVO CR 25 MG/100 MG TAB PO SCH (09:42)
[2018-10-28] MEDS: SENNOSIDES/DOCUSATE SODIUM TAB PO SCH ×2 (09:45→19:55)
[2018-10-28] MEDS: LEVOTHYROXINE 50 MCG TAB PO SCH (09:45)
[2018-10-28] MEDS: amLODIPine BESYLATE 5 MG TAB PO SCH (09:46)
[2018-10-28] MEDS: FINASTERIDE 5 MG TAB PO SCH (09:47)
[2018-10-28] MEDS: OXYBUTYNIN CHLORIDE 5 MG TAB PO SCH ×2 (09:47→19:55)
[2018-10-28] MEDS: ESCITALOPRAM OXALATE 10 MG TAB PO SCH (09:47)
[2018-10-28] MEDS: SPIRONOLACTONE 25 MG TAB PO SCH (09:47)
[2018-10-28] MEDS: ENOXAPARIN 30 MG/0.3 ML SYR SC SCH (09:48)
[2018-10-28] MEDS: CHOLECALCIFEROL VIT D3 1,000 UNITS TAB PO SCH (11:34)
[2018-10-28] MEDS: OMEGA-3 FATTY ACIDS 1,000 MG CAP PO SCH (11:34)
[2018-10-28] MEDS: IRBESARTAN 150 MG TAB PO SCH (11:41)
[2018-10-28] MEDS: ASPIRIN 81 MG CHEWABLE TAB PO SCH (17:08)
[2018-10-28] MEDS: valACYclovir 500 MG TAB PO SCH (19:55)
[2018-10-28] MEDS: PANTOPRAZOLE SODIUM 40 MG TAB PO SCH (19:55)
--- NOTE | 2018-10-28 21:04 | SOAPPROG ---
SOAP Progress Note Assessment/Plan: Assessment: Pneumonia iimproving. WBC improved. Still needing oxygen. Weaker than baseline. Parkinsons, Aortic valve replacement. Confussion. Plan: Continue with antibiotics. Ambulate. REcheck CXR adn labs in AM 10/27/18 10:27 10/28/18 21:03 Subjective: Mildly confused. Still coughing. Appetite good. Objective: Vital Signs Temp Pulse Resp BP Pulse Ox 98.2 F 74 14 123/64 H 97 10/28/18 20:00 10/28/18 20:47 10/28/18 20:47 10/28/18 20:00 10/28/18 20:47 Laboratory Results 10/27/18 04:17 10/27/18 04:17 10/27/18 10/28/18 10/29/18 05:59 05:59 05:59 Intake Total 850 1000 Output Total 1050 1200 600 Balance -200 -200 -600 Did not know that he was in [facility] however he knew that taxes would be due in a few days. Lungs stable. ICD10 Worksheet Patient Problems: Problems Problem Status Onset Elevated WBC count Acute Hypoxemia Acute Closed right hip fracture Acute Dislocation of right ring finger Acute Pneumonia Acute Postoperative complete heart block Acute S/P aortic valve replacement with bioprosthetic valve Acute S/P placement of cardiac pacemaker Acute chronic disease mgmt/transitional care Acute BPH (benign prostatic hyperplasia) Chronic COPD (chronic obstructive pulmonary disease) Chronic GERD (gastroesophageal reflux disease) Chronic Hypertension Chronic Hypothyroid Chronic Nocturnal hypoxia Chronic Physical deconditioning Chronic Severe calcific aortic valve stenosis Chronic
[2018-10-29 04:38] LABS: PLATELET COUNT 105 10^3/uL (150-400)
[2018-10-29] MEDS: IPRATROPIUM/ALBUTEROL 3 ML DEYVIAL IH SCH ×4 (05:15→21:24)
[2018-10-29] MEDS: METOPROLOL SUCCINATE XR 25 MG TAB PO SCH (09:44)
[2018-10-29] MEDS: SENNOSIDES/DOCUSATE SODIUM TAB PO SCH ×2 (09:46→21:16)
[2018-10-29] MEDS: OXYBUTYNIN CHLORIDE 5 MG TAB PO SCH ×2 (09:47→21:15)
[2018-10-29] MEDS: LEVOTHYROXINE 50 MCG TAB PO SCH (09:48)
[2018-10-29] MEDS: amLODIPine BESYLATE 5 MG TAB PO SCH (09:48)
[2018-10-29] MEDS: ENOXAPARIN 30 MG/0.3 ML SYR SC SCH (09:48)
[2018-10-29] MEDS: CARBIDOPA/LEVO CR 25 MG/100 MG TAB PO SCH (09:48)
[2018-10-29] MEDS: SPIRONOLACTONE 25 MG TAB PO SCH (09:48)
[2018-10-29] MEDS: FINASTERIDE 5 MG TAB PO SCH (09:48)
[2018-10-29] MEDS: ESCITALOPRAM OXALATE 10 MG TAB PO SCH (09:48)
[2018-10-29] MEDS: IRBESARTAN 150 MG TAB PO SCH (12:17)
[2018-10-29] MEDS: OMEGA-3 FATTY ACIDS 1,000 MG CAP PO SCH (12:17)
[2018-10-29] MEDS: POLYETHYLENE GLYCOL 3350 17 GM PKT PO PRN (12:17)
[2018-10-29] MEDS: COLCHICINE 0.6 MG CAP/TAB PO SCH ×2 (12:17→21:15)
[2018-10-29] MEDS: CHOLECALCIFEROL VIT D3 1,000 UNITS TAB PO SCH (12:19)
--- NOTE | 2018-10-29 15:32 | SOAPPROG ---
SOAP Progress Note Assessment/Plan: Assessment: Pneumonia iimproving. WBC improved. Still needing oxygen. Weaker than baseline. Parkinsons, Aortic valve replacement. Confusion- resolved. Probable gout in his L foot. Plan: Continue with antibiotics. Ambulate. Trial of colchicine for his probable gout. 10/27/18 10:27 10/28/18 21:03 10/29/18 15:32 Subjective: Better oriented today. Cough improved. No chest pain. Breathing comfotably, however requiring 5 L of oxygen. CO pain in his R foot. Objective: Vital Signs Temp Pulse Resp BP Pulse Ox 97.9 F 77 16 116/64 92 10/29/18 11:20 10/29/18 11:20 10/29/18 11:20 10/29/18 12:17 10/29/18 11:20 Laboratory Results 10/29/18 03:43 10/29/18 03:43 10/28/18 10/29/18 10/30/18 05:59 05:59 05:59 Intake Total 1000 Output Total 1200 1300 Balance -200 -1300 Lungs with R basilar rales. COR RRR. 3/6 systolic murmur. L foot mildly swollen and somewhat tender. He has trouble bearing weight. ICD10 Worksheet Patient Problems: Problems Problem Status Onset Elevated WBC count Acute Hypoxemia Acute Closed right hip fracture Acute Dislocation of right ring finger Acute Pneumonia Acute Postoperative complete heart block Acute S/P aortic valve replacement with bioprosthetic valve Acute S/P placement of cardiac pacemaker Acute chronic disease mgmt/transitional care Acute BPH (benign prostatic hyperplasia) Chronic COPD (chronic obstructive pulmonary disease) Chronic GERD (gastroesophageal reflux disease) Chronic Hypertension Chronic Hypothyroid Chronic Nocturnal hypoxia Chronic Physical deconditioning Chronic Severe calcific aortic valve stenosis Chronic
--- NOTE | 2018-10-29 16:31 | ASMTCMCOM ---
CM Note CM Note Notes: PT/OT are recommending home health care for the patient. Spoke with patient and he agrees to [facility] home health.Spoke with [facility] and they have accepted him as a patient. Patient will need PT/OT and nursing services. CM will follow. Date Signed: 10/29/2018 04:30 PM Electronically Signed By:Paradise Garcia LCSW
[2018-10-29] MEDS: ASPIRIN 81 MG CHEWABLE TAB PO SCH (17:56)
[2018-10-29] MEDS: PANTOPRAZOLE SODIUM 40 MG TAB PO SCH (21:16)
[2018-10-29] MEDS: valACYclovir 500 MG TAB PO SCH (21:17)
[2018-10-30] MEDS: IPRATROPIUM/ALBUTEROL 3 ML DEYVIAL IH SCH ×4 (05:22→21:37)
[2018-10-30] MEDS: SENNOSIDES/DOCUSATE SODIUM TAB PO SCH ×2 (08:59→20:16)
[2018-10-30] MEDS: ESCITALOPRAM OXALATE 10 MG TAB PO SCH (08:59)
[2018-10-30] MEDS: COLCHICINE 0.6 MG CAP/TAB PO SCH ×2 (08:59→20:16)
[2018-10-30] MEDS: SPIRONOLACTONE 25 MG TAB PO SCH (09:00)
[2018-10-30] MEDS: amLODIPine BESYLATE 5 MG TAB PO SCH (09:00)
[2018-10-30] MEDS: METOPROLOL SUCCINATE XR 25 MG TAB PO SCH (09:00)
[2018-10-30] MEDS: FINASTERIDE 5 MG TAB PO SCH (09:00)
[2018-10-30] MEDS ORDERED: ENOXAPARIN 40 MG/0.4 ML SYR SC SCH ×2 (09:00)
[2018-10-30] MEDS: CARBIDOPA/LEVO CR 25 MG/100 MG TAB PO SCH (09:00)
[2018-10-30] MEDS: OXYBUTYNIN CHLORIDE 5 MG TAB PO SCH ×2 (09:00→20:16)
[2018-10-30] MEDS: LEVOTHYROXINE 50 MCG TAB PO SCH (09:00)
[2018-10-30] MEDS: IRBESARTAN 150 MG TAB PO SCH (13:04)
[2018-10-30] MEDS: CHOLECALCIFEROL VIT D3 1,000 UNITS TAB PO SCH (13:04)
[2018-10-30] MEDS: OMEGA-3 FATTY ACIDS 1,000 MG CAP PO SCH (13:05)
[2018-10-30] MEDS: ASPIRIN 81 MG CHEWABLE TAB PO SCH (17:15)
[2018-10-30] MEDS: POLYETHYLENE GLYCOL 3350 17 GM PKT PO PRN (17:15)
--- NOTE | 2018-10-30 18:06 | SOAPPROG ---
SOAP Progress Note Assessment/Plan: Assessment: Plan: 10/30/18 18:08 Pneumonia: WBC normal as of yesterday. O2 need down to 2L this afternoon, though increases at night. COPD: chronic hypoxia at baseline, on oxygen Pain in L foot: better this afternoon such that he was able to walk with nurse. On colchicine for presumed gout Weakness: PT recommending home care, OT SNF due to some cognitive difficulty noted Dispo: if continues to improve, possibly home tomorrow 10/30/18 18:08 10/30/18 18:13 Subjective: Doing well today. Went for a walk a little while ago without too much discomfort. Not able to earlier today with PT due to pain in L foot. No c/o SOB , chest pain. Reports mild LE edema. Objective: Vital Signs Temp Pulse Resp BP Pulse Ox 36.7 C 60 18 117/57 L 96 10/30/18 16:02 10/30/18 16:02 10/30/18 16:02 10/30/18 16:02 10/30/18 16:02 Laboratory Results 10/29/18 03:43 10/29/18 03:43 10/29/18 10/30/18 10/31/18 05:59 05:59 05:59 Intake Total 340 Output Total 1300 2450 1450 Balance -1300 -2110 -1450 General: pleasant, alert, NAD Lungs: breath sounds coarse, few rales in bases CV: RRR Extremities: mild BLE edema ICD10 Worksheet Patient Problems: Problems Problem Status Onset Elevated WBC count Acute Hypoxemia Acute Closed right hip fracture Acute Dislocation of right ring finger Acute Pneumonia Acute Postoperative complete heart block Acute S/P aortic valve replacement with bioprosthetic valve Acute S/P placement of cardiac pacemaker Acute chronic disease mgmt/transitional care Acute BPH (benign prostatic hyperplasia) Chronic COPD (chronic obstructive pulmonary disease) Chronic GERD (gastroesophageal reflux disease) Chronic Hypertension Chronic Hypothyroid Chronic Nocturnal hypoxia Chronic Physical deconditioning Chronic Severe calcific aortic valve stenosis Chronic
[2018-10-30] MEDS: PANTOPRAZOLE SODIUM 40 MG TAB PO SCH (20:16)
[2018-10-30] MEDS: valACYclovir 500 MG TAB PO SCH (20:16)
[2018-10-31] MEDS: IPRATROPIUM/ALBUTEROL 3 ML DEYVIAL IH SCH ×2 (05:00→11:03)
[2018-10-31] MEDS: LEVOTHYROXINE 50 MCG TAB PO SCH (08:21)
[2018-10-31 08:35] VITALS: BP 144/72
--- NOTE | 2018-10-31 08:56 | SOAPPROG ---
SOAP Progress Note Assessment/Plan: Assessment: Plan: 10/31/18 08:55 acute on chronic respiratory failure with likely COPD exacerbation vs mild pneumonia--doing better. Will d/c back to the [facility]. He has oxygen at home. PD--stable Gout--better Subjective: Gilmer is feeling better. He is hungry this am. No shortness of breath. He has oxygen at home. Cough at baseline Objective: Vital Signs Temp Pulse Resp BP Pulse Ox 36.4 C 64 20 144/72 H 92 10/31/18 08:00 10/31/18 08:00 10/31/18 08:00 10/31/18 08:00 10/31/18 08:00 Laboratory Results 10/29/18 03:43 10/29/18 03:43 10/30/18 10/31/18 11/01/18 05:59 05:59 05:59 Intake Total 340 350 Output Total 2450 3450 Balance -2110 -3100 Gen: NAD, pleasant, bright Lungs: mildly diminished breath sounds, dry cough Heart: RRR 2-3/6 ANDREAS Abd + bs soft NT LE's stable mild edema, ankle joint breakdown-chronic Hgb 10.8 ICD10 Worksheet Patient Problems: Problems Problem Status Onset Elevated WBC count Acute Hypoxemia Acute Closed right hip fracture Acute Dislocation of right ring finger Acute Pneumonia Acute Postoperative complete heart block Acute S/P aortic valve replacement with bioprosthetic valve Acute S/P placement of cardiac pacemaker Acute chronic disease mgmt/transitional care Acute BPH (benign prostatic hyperplasia) Chronic COPD (chronic obstructive pulmonary disease) Chronic GERD (gastroesophageal reflux disease) Chronic Hypertension Chronic Hypothyroid Chronic Nocturnal hypoxia Chronic Physical deconditioning Chronic Severe calcific aortic valve stenosis Chronic
[2018-10-31] MEDS ORDERED: CEFUROXIME AXETIL 250 MG TAB PO SCH (09:00)
--- NOTE | 2018-10-31 09:01 | PDIAF ---
- Diagnosis Diagnosis: pneumonia, COPD, PD Code Status: Do Not Resuscitate - Medication Management Fpc Antibiotics: ceftin 250 mg BID Fpc Antibiotic Stop Date: 11/05/18 Discharge Medications: electronically signed and located in the Home Medication List. PICC Care - Routine: N/A - Orders Services needed: Home Care, Physical Therapy, Occupational Therapy Home Care Face to Face: I certify that this patient was under my care and that I had the required [id number] encounter meeting the encounter requirements on the discharge day. My findings support the fact that the patient is homebound as defined in Home Care Face to Face Continued: CMS Chapter 7 Medicare Benefits Manual 30.1.1 , The condition of the patient is such that there exists a normal inability to leave home and consequently, leaving home would require a considerable and taxing effort. Isolation Type: None Diet Recommendation: no restrictions on diet Diet Texture: Regular Texture Diet, Thin Liquids, Meds Whole w/Liquids Weigh Patient: weekly Kang: No (f/u in 3-5 days with Bryce OSORIO [phone]) - Follow Up Care Current Providers and Referrals: Patient,NotPresent [Unknown] - As per Instructions
--- NOTE | 2018-10-31 09:17 | GDS ---
[f rep st] DISCHARGE SUMMARY HOSPITAL COURSE: The patient was admitted due to altered mental status, increased cough and low-grad e fever. He was suspected to have a little bit of left lower lobe pneumonia with acute on chronic re spiratory failure. He has underlying COPD. He uses oxygen at night and when he feels shortness of b reath at home, underlying Parkinson's has been stable and presumptively he has had some gout in his g reat toe, which is improved with colchicine therapy. His overall breathing is improved. His energy is improved and his overall focus has improved back to baseline. At this point, will discharge back t o home. He lives independently at [facility]. Will add home care with PT and OT to improve his ove rall strength, conditioning and balance. Will have him take Ceftin 250 mg twice daily for the next 5 days. He has completed a full course of Zithromax. We will discontinue the IV Rocephin that he was given in the hospital. We will continue his other medications. We will see him in outpatient for huber davila in 3-5 days. /[id number]/MODL
[2018-10-31] MEDS: SPIRONOLACTONE 25 MG TAB PO SCH (09:21)
[2018-10-31] MEDS: COLCHICINE 0.6 MG CAP/TAB PO SCH (09:22)
[2018-10-31] MEDS: FINASTERIDE 5 MG TAB PO SCH (09:22)
[2018-10-31] MEDS: OXYBUTYNIN CHLORIDE 5 MG TAB PO SCH (09:27)
[2018-10-31] MEDS: CARBIDOPA/LEVO CR 25 MG/100 MG TAB PO SCH (09:29)
[2018-10-31] MEDS: ESCITALOPRAM OXALATE 10 MG TAB PO SCH (09:30)
[2018-10-31] MEDS: METOPROLOL SUCCINATE XR 25 MG TAB PO SCH (09:32)
[2018-10-31] MEDS: amLODIPine BESYLATE 5 MG TAB PO SCH (09:32)
[2018-10-31] MEDS: OMEGA-3 FATTY ACIDS 1,000 MG CAP PO SCH (11:30)
[2018-10-31] MEDS: CHOLECALCIFEROL VIT D3 1,000 UNITS TAB PO SCH (11:30)
--- NOTE | 2018-10-31 11:30 | ASMTLACE ---
LACE Length of stay for Answers: 4-6 days current admission Acuity / Level of Answers: Yes Care: Did the patient have an inpatient admission? Comorbidities - select Answers: Other Notes: aortic all that apply stenosis, HTN, pacemake r, BPH, Parkinson's Diseas e # of Emergency department Answers: 1-2 visits in the last 6 months Score: 9 Date Signed: 10/31/2018 11:29 AM Electronically Signed By:Zara Edward RN
--- NOTE | 2018-10-31 11:53 | ASMTDCNOTE ---
Case Management Discharge Discharge Order Complete? Answers: Yes Patient to Obtain Answers: Independently Medications Transportation Arranged Answers: Family/Friends Faxed Final Orders Answers: Yes Agency/Facility Transfer Answers: Yes Report Printed & Faxed to Receiving Agency Discharge Comments Notes: D/w EXECUTIVE MARKETING ASSISTANT, final orders faxed. [facility] homecare notified, RN to call report. Date Signed: 10/31/2018 11:52 AM Electronically Signed By:Zara Edward RN
--- NOTE | 2018-10-31 16:05 | ASDISCHSUM ---
Discharge Information Plan Status:Home with Home Health Medically Cleared to Leave: Discharge Date:10/31/2018 02:59 PM CM D/C Disposition:Home Health Service ADT D/C Disposition:Home Health Service Projected Discharge Date:10/31/2018 11:00 AM Transportation at D/C:Friend Discharge Delay Reason: Follow-Up Date:10/31/2018 11:00 AM Discharge Slot: Final Diagnosis: Placement Information Referral Type:*Home Health Care Services Referral ID:[id number] Provider Name:[facility] Address 1:[address] Address 2: City:[place] Selection Factors: State:[place] Patient Contact Information Contact Name:STALIN Relationship:Friend Address:[address] City:[place] Alternate Phone: State/Zip Code:[place] [address] Email: Financial Information Financial Class:Medicare Primary Plan Desc:MEDICARE INPATIENT Primary Plan Number:[id number] Secondary Plan Desc:[facility] Secondary Plan Number:[id number] Assessment Information LACE LACE Length of stay for Answers: 4-6 days current admission Acuity / Level of Answers: Yes Care: Did the patient have an inpatient admission? Comorbidities - select Answers: Other Notes: aortic all that apply stenosis, HTN, pacemake r, BPH, Parkinson's Diseas e # of Emergency department Answers: 1-2 visits in the last 6 months Score: 9 Date Signed: 10/31/2018 11:29 AM Electronically Signed By:Zara Edward RN [facility] CM Progress Note CM Note CM Note Notes: Pt has been admitted with AMS, possible UTI. He lives at [facility]. Pt has no family local, there is a grandson in the [place] area. Charlotte Johnson [phone] is pt's MPOA. She was the pt's former investigator cash shortage and became MPOA after his . She has been asked to bring in the paperwork. Pt's d/c needs not known at this time. CM will follow. D/C plan: TBD Date Signed: 10/26/2018 03:29 PM Electronically Signed By:BIPIN Pennington [facility] CM Progress Note CM Note CM Note Notes: PT/OT are recommending home health care for the patient. Spoke with patient and he agrees to [facility] home health.Spoke with [facility] and they have accepted him as a patient. Patient will need PT/OT and nursing services. CM will follow. Date Signed: 10/29/2018 04:30 PM Electronically Signed By:Paradise Garcia LCSW Case Management Discharge Plan Note Case Management Discharge Discharge Order Complete? Answers: Yes Patient to Obtain Answers: Independently Medications Transportation Arranged Answers: Family/Friends Faxed Final Orders Answers: Yes Agency/Facility Transfer Answers: Yes Report Printed & Faxed to Receiving Agency Discharge Comments Notes: D/w CLOCK MECHANIC, final orders faxed. [facility] homecare notified, RN to call report. Date Signed: 10/31/2018 11:52 AM Electronically Signed By:Zara Edward RN Intervention Information Intervention Type:*Incorrect Registration Date of Service:10/27/2018 09:54 AM Patient Type:Observation Staff Member:Payton Holland Hours: Discipline: Severity: Comment: Intervention Type:*IM-Signed Date of Service:10/31/2018 11:21 AM Patient Type:Inpatient Staff Member:Doreen Ott Hours: Discipline: Severity: Comment:
== END 2018-10-31 14:59 | disposition home health service (06) | DRG 193 ==
LOC: EDUNIT# → F3E 14:54 → OBSVTOIN 15:20
PROVIDERS: ADMIT Internal Medicine; ATTEND Internal Medicine
DX: J18.9 Pneumonia, unspecified organism (principal); J96.21 Acute and chronic respiratory failure with hypoxia; J44.9 Chronic obstructive pulmonary disease, unspecified; M10.9 Gout, unspecified; G20 Parkinson's disease; E03.9 Hypothyroidism, unspecified; K21.9 Gastro-esophageal reflux disease without esophagitis; N40.1 Benign prostatic hyperplasia with lower urinary tract symptoms; N39.498 Other specified urinary incontinence; I25.10 Atherosclerotic heart disease of native coronary artery without angina pectoris; I10 Essential (primary) hypertension; Z99.81 Dependence on supplemental oxygen; Z95.2 Presence of prosthetic heart valve; Z87.891 Personal history of nicotine dependence; Z95.0 Presence of cardiac pacemaker
CPT/HCPCS: 92526-GN; 92610-GN; 92611-GN; 96365; 97110-GP; 97116-GP; 97161-GP; 97166-GO; 97530-GO; 97530-GP; 97535-GO; J0456; J0696; J1650

== ENCOUNTER → 2018-11-27 | Outpatient (CLI) | payer OTHER | LOC: BHCLAF 08:30 | PROVIDERS: ATTEND Internal Medicine Cardiovascular Disease | DX: Q25.3 Supravalvular aortic stenosis (principal); I44.2 Atrioventricular block, complete; Z95.0 Presence of cardiac pacemaker | CPT/HCPCS: 93306-PO ==